=== PATIENT | male | born 1945 | race Caucasian/White ===

== ENCOUNTER 2018-12-01 15:29 | Inpatient (IN) | payer MEDICARE, MEDICAID ==
[2018-12-01 16:45] LABS: ABS Basophils 0 10^3/ul (0-0.2); ABS Eosinophils 0.2 10^3/ul (0-0.6); ABS Lymphocytes 1.2 10^3/ul (1.0-4.8); ABS Monocytes 0.8 10^3/ul (0-0.8); ABS Neutrophils 1.9 10^3/ul (1.5-7.7); ABS Nucleated RBC 0 10^3/ul; Eosinophil % 5.6 %; Hematocrit 40 % (42-52); Hemoglobin 13.3 g/dl (14.0-18.0); Lymphocyte % 29.3 %; Mean Corpuscular HGB Conc 33 g/dl (31-36); Mean Corpuscular Hemoglobin 30 pg (27-31); Mean Corpuscular Volume 91 fL (80-94); Mean Platelet Volume 7.1 fL (7.4-10.4); Nucleated Red Blood Cells % 0.1; Platelet Count 268 10^3/ul (150-450); Red Blood Count 4.41 10^6/ul (4.00-5.40); Red Cell Distribution Width 15 % (10.5-15); White Blood Count 4.2 10^3/ul (3.5-10.8)
[2018-12-01 17:05] LABS: Albumin 4.1 g/dL (3.2-5.2); Albumin/Globulin Ratio 1.2 (1-3); BUN/Creatinine Ratio 15.5 (8-20); Calcium 8.7 mg/dL (8.6-10.3); EGFR Non-African American 21.5 (>60); Globulin 3.4 g/dL (2-4); Potassium 4.4 mmol/L (3.5-5.0); Total Bilirubin 0.3 mg/dL (0.2-1.0); Total Protein 7.5 g/dL (6.4-8.9)
--- NOTE | 2018-12-01 18:38 | ED ---
Complex/Multi-Sys Presentation - HPI Summary HPI Summary: This patient is a 73 year old male presenting to [facility] accompanied by his caregiver Michelle with several complaints. The patient has a hx of mental retardation and does not speak, his ocular care technologist gave history. Pt was dx flu a week ago and MRSA of the RLE three days ago. Recently he has been less active, pale, and is not drinking fluids. She also states he c/o of pain in his ABD as he moves and is not eating well. There is no n/v but he does have constipation. LEVEL 5 CAVEAT: Exam limited due to severe MR. - History Of Current Complaint Chief Complaint: EDGeneral Time Seen by Provider: 12/01/18 18:27 Hx Obtained From: Family/Painter Mirror Onset/Duration: Still Present Timing: Constant Severity Currently: Moderate Associated Signs And Symptoms: Positive: Other - see HPI - Allergies/Home Medications Allergies/Adverse Reactions: Allergies Allergy/AdvReac Type Severity Reaction Status Date / Time Adhesive Tape Allergy Severe severe Verified 12/01/18 18:32 skin inflammation latex Allergy Severe See Comment Verified 12/01/18 19:35 cephalexin Allergy Unknown Unknown Verified 12/01/18 19:36 Reaction Details Home Medications: Home Medications Aspirin EC TAB* [Ecotrin EC Low Dose 81 MG*] 81 mg PO DAILY 12/01/18 [History Confirmed 12/01/18] Bismuth Subsalicylate [Pepto-Bismol Max Strength] 30 ml PO Q6HR PRN 12/01/18 [ History Confirmed 12/01/18] Lisinopril TAB* [Prinivil TAB*] 10 mg PO DAILY 12/01/18 [History Confirmed 12/01] Meclizine TAB* [Antivert 12.5 TAB*] 25 mg PO BID PRN 12/01/18 [History Confirmed 12/01/18] Oseltamivir CAP* [Tamiflu CAP*] 75 mg PO BID 12/01/18 [History Confirmed ] QUEtiapine TAB* [Seroquel 25 MG TAB*] 50 mg PO BID 12/01/18 [History Confirmed 12/01/18] Sulfamethox/Trimethoprim DS* [Bactrim DS 800/160 TAB*] 1 tab PO BID 12/01/18 [ History Confirmed 12/01/18] Verapamil HCl [Verapamil ER] 240 mg PO DAILY 12/01/18 [History Confirmed ] guaiFENesin LIQ* [Robitussin*] 5 mg PO Q4H PRN 12/01/18 [History Confirmed 12/01] PMH/Surg Hx/FS Hx/Imm Hx Previously Healthy: No - LEVEL 5 CAVEAT: Exam limited due to severe MR. Cardiovascular History: Reports: Hx Hypertension - ON MEDICATION, Hx Peripheral Vascular Disease GI History: Reports: Hx Gastroesophageal Reflux Disease - ON MEDICATION History: Reports: Hx Kidney Stones - HISTORY OF, Other Problems/Disorders - urethral strictures Musculoskeletal History: Reports: Hx Arthritis, Other Musculoskeletal History - VERY STIFF IN AM, Sensory History: Reports: Hx Cataracts - LEFT EYE, Hx Hearing Aid - LEFT EAR Denies: Hx Contacts or Glasses Opthamlomology History: Reports: Hx Cataracts - LEFT EYE Denies: Hx Contacts or Glasses Neurological History: Reports: Other Neuro Impairments/Disorders - SEVERE MENTAL RETARDATION Denies: Hx Dementia Psychiatric History: Reports: Hx Anxiety - ON MEDICTION, Hx Depression - Surgical History Surgery Procedure, Year, and Place: 01/2013-[facility] DILITATION[facility] Hx Anesthesia Reactions: No - Immunization History Immunizations Up to Date: Yes Infectious Disease History: Yes Infectious Disease History: Denies: Traveled Outside the [place] in Last 30 Days - Family History Known Family History: Positive: Unknown - Social History Alcohol Use: None Substance Use Type: Reports: None Smoking Status (MU): Never Smoked Tobacco Review of Systems - ROS Summary Review of Systems Summary: LEVEL 5 CAVEAT: Exam limited due to severe MR. Positive: Other - decreased activity . Negative: Fever Positive: Abdominal Pain, Other - contipation . Negative: Vomiting, Nausea Positive: Other - pallor All Other Systems Reviewed And Are Negative: No Physical Exam - Summary Physical Exam Summary: VITAL SIGNS: Reviewed. GENERAL: Patient is a well-developed and nourished male who is lying comfortable in the stretcher. Patient is not in any acute respiratory distress. HEAD AND FACE: No signs of trauma. No ecchymosis, hematomas or skull depressions. No sinus tenderness. EYES: PERRLA, EOMI x 2, No injected conjunctiva, no nystagmus. EARS: Hearing grossly intact. Ear canals and tympanic membranes are within normal limits. MOUTH: Oropharynx within normal limits. NECK: Supple, trachea is midline, no adenopathy, no JVD, no carotid bruit, no c- spine tenderness, neck with full ROM. CHEST: Symmetric, no tenderness at palpation LUNGS: Clear to auscultation bilaterally. No wheezing or crackles. CVS: Regular rate and rhythm, S1 and S2 present, no murmurs or gallops appreciated. ABDOMEN: Soft, non-tender. Slightly distention. No rebound no guarding, and no masses palpated. Bowel sounds are decreased EXTREMITIES: FROM in all major joints, no edema, no cyanosis or clubbing. NEURO: Alert. Non verbal SKIN: there is an ulcerations on the RLE right ankel small wound anterior aspect there is no discharge Triage Information Reviewed: Yes Vital Signs On Initial Exam: Initial Vitals Temp Pulse Resp BP Pulse Ox 98.8 F 69 18 105/57 98 12/01/18 15:31 12/01/18 15:31 12/01/18 15:31 12/01/18 15:31 12/01/18 15:31 Vital Signs Reviewed: Yes Diagnostics - Vital Signs Vital Signs Temp Pulse Resp BP Pulse Ox 12/01/18 18:26 69 96 12/01/18 18:24 70 107/62 97 12/01/18 17:50 99.2 F 72 17 108/54 98 12/01/18 15:31 98.8 F 69 18 105/57 98 - Laboratory Lab Results: Lab Results 12/01/18 12/01/18 Range/Units 15:40 15:40 WBC 4.2 (3.5-10.8) 10^3/ul RBC 4.41 (4.00-5.40) 10^6/ul Hgb 13.3 L (14.0-18.0) g/dl Hct 40 L (42-52) % MCV 91 (80-94) fL MCH 30 (27-31) pg MCHC 33 (31-36) g/dl RDW 15 (10.5-15) % Plt Count 268 (150-450) 10^3/ul MPV 7.1 L (7.4-10.4) fL Neut % (Auto) 45.7 % Lymph % (Auto) 29.3 % Hamilton % (Auto) 18.5 % Eos % (Auto) 5.6 % Baso % (Auto) 0.9 % Absolute Neuts (auto) 1.9 (1.5-7.7) 10^3/ul Absolute Lymphs (auto) 1.2 (1.0-4.8) 10^3/ul Absolute Monos (auto) 0.8 (0-0.8) 10^3/ul Absolute Eos (auto) 0.2 (0-0.6) 10^3/ul Absolute Basos (auto) 0 (0-0.2) 10^3/ul Absolute Nucleated RBC 0 10^3/ul Nucleated RBC % 0.1 Sodium 133 L (135-145) mmol/L Potassium 4.4 (3.5-5.0) mmol/L Chloride 102 (101-111) mmol/L Carbon Dioxide 24 (22-32) mmol/L Anion Gap 7 (2-11) mmol/L BUN 45 H (6-24) mg/dL Creatinine 2.90 H (0.67-1.17) mg/dL Est GFR ( Amer) 26.0 (>60) Est GFR (Non-Af Amer) 21.5 (>60) BUN/Creatinine Ratio 15.5 (8-20) Glucose 117 H (70-100) mg/dL Calcium 8.7 (8.6-10.3) mg/dL Total Bilirubin 0.30 (0.2-1.0) mg/dL AST 24 (13-39) U/L ALT 21 (7-52) U/L Alkaline Phosphatase 58 (34-104) U/L Total Protein 7.5 (6.4-8.9) g/dL Albumin 4.1 (3.2-5.2) g/dL Globulin 3.4 (2-4) g/dL Albumin/Globulin Ratio 1.2 (1-3) Result Diagrams: 12/01/18 15:40 12/02/18 06:50 Lab Statement: Any lab studies that have been ordered have been reviewed, and results considered in the medical decision making process. - CT CT ABD/pelvis CT Interpretation Completed By: Radiologist Summary of CT Findings: 1. Possible findings of acute cholecystitis which can be further evaluated with. ultrasound. 2. Subtle finding suggesting cystitis. 3. Bilateral inguinal hernias. No strangulation. 4. Bosniak type I renal cyst. No followup indicated. DR Hugo has reviewed this report. - EKG 193 Cardiac Rate: NL EKG Rhythm: Sinus Rhythm - at 62 bpm Summary of EKG Findings: no ST elevations Complex Multi-Symp Course/Dx Assessment/Plan: Blood work without any significant abnormality except for slight decrease in hemoglobin and hematocrit, sodium 133, BUNs 25, creatinine is 2.9 consistent with an acute renal failure. Glucose is 117. Abdominopelvic CT impression: possible findings of acute cholecystitis which can be further evaluated with ultrasound. Subtle findings suggestive cystitis. Bilateral inguinal hernias. No incarceration. Renal cyst. Patient doesnt have any significant pain in the right upper quadrant. At this point I discussed my physical exam and findings with Dr. Olsen from the hospitalist services who accepted the patient for admission. He will order an ultrasound of the right upper quadrant and if needed he will consult surgery. I is course the case with and Dr. Montoya from a surgery and he will consult he the ultrasound comes back positive for an acute cholecystitis. At this time Dr. Olsen with follow- up the ultrasound. - Diagnoses Provider Diagnoses: Dehydration, Acute on chronic renal failure - Physician Notifications Discussed Care Of Patient With: Derrick Olsen Time Discussed With Above Provider: 18:42 Instructed by Provider To: Admit As Inpatient Discharge - Sign-Out/Discharge Documenting (check all that apply): Patient Departure - admitted Patient Received Moderate/Deep Sedation with Procedure: No - Discharge Plan Condition: Fair Disposition: ADMITTED TO [facility] - Billing Disposition and Condition Condition: FAIR Disposition: Admitted to [facility] - Attestation Statements Document Initiated by Mario: Yes Documenting Scribe: David Kim Provider For Whom Mario is Documenting (Include Credential): Cas Hugo MD Scribe Attestation: IDavid , scribed for Cas Hugo MD on 12/02/18 at 205. Scribe Documentation Reviewed: Yes Provider Attestation: The documentation as recorded by the David tavares accurately reflects the service I personally performed and the decisions made by me, Cas Hugo MD Status of Scribe Document: Viewed Consult Consult: [id number]: I discussed the findings of the CT with Dr Castro and he has agreed to consult on the patient if the US is positive.
[2018-12-01] MEDS ORDERED: NS 0.9% 1000 ML** 1,000 ML IV ONE (18:39)
[2018-12-01] MEDS ORDERED: guaiFENesin LIQ* 100 MG/5 ML UDC PO PRN (19:14)
[2018-12-01] MEDS ORDERED: Acetaminophen TAB* 325 MG PO PRN (19:14)
[2018-12-01] MEDS ORDERED: Calcium Carbonate CHEW TAB* 500 MG (TUMS) PO PRN (19:14)
[2018-12-01] MEDS ORDERED: Bismuth Subsalicylate* 524 MG/30 ML BTL PO PRN (19:14)
[2018-12-01] MEDS ORDERED: Docusate CAP* 100 MG PO PRN (19:14)
[2018-12-01] MEDS ORDERED: Meclizine TAB* 12.5 MG PO PRN (19:14)
[2018-12-01] MEDS ORDERED: Piperacillin/Tazobac ADVAN(*) 3.375 GM in NS 0.9% 100 ML* 100 ML IVPB ONE (20:30)
[2018-12-01] MEDS ORDERED: Sulfamethox/Trimethoprim DS 800/160* TAB PO SCH (21:00)
[2018-12-01] MEDS ORDERED: Zosyn per Pharmacy* NOTE FOLLOW UP SCH (21:00)
[2018-12-01] MEDS: NS 0.9% 1000 ML** 1,000 ML IV SCH (21:35)
[2018-12-01] MEDS: QUEtiapine TAB* 25 MG PO SCH (22:17)
[2018-12-01] MEDS: Oseltamivir CAP* 30 MG CAP PO SCH (22:19)
[2018-12-01] MEDS: Donepezil TAB* 5 MG PO SCH (22:19)
[2018-12-01] MEDS: Heparin VIAL(*) 5000 UNITS/ML VIAL (FIVE THOUSAND) SUBCUT SCH (22:20)
--- NOTE | 2018-12-01 22:44 | HP ---
CC: Dr. Mark Mccain HISTORY AND PHYSICAL: DATE OF ADMISSION: 12/01/18 PRIMARY CARE PROVIDER: Mark Mccain MD CHIEF COMPLAINT: Dehydration. HISTORY OF PRESENT ILLNESS: This is a 73-year-old male who is developmentally delayed, who was diagnosed with flu and has started Tamiflu about 2 days ago, the patient resides in a group facility at the [facility], the house nurse was concerned that the patient is dehydrated, so the patient was brought in to the hospital. The house nurse has noted that the patient has had decreased oral intake, he is not eating or drinking as well as he normally does and he was also complaining of generalized malaise and fatigue. Subsequently, the patient was brought to the hospital. In the emergency room, the patient was found to have acute kidney injury, started on IV fluids, and subsequently the hospitalists service was called. PAST MEDICAL HISTORY: 1. Mental retardation. 2. Dementia. 3. Urethral stricture. 4. Right lower extremity infection. 5. Depression. 6. GERD. 7. Left-sided hearing loss. PAST SURGICAL HISTORY: Includes: 1. TURP. 2. Internal urethrotomy. Allergies: Cephalexin, latex, adhesive tape MEDICATIONS: Include: 1. Tylenol 650 mg every 4 hours as needed. 2. Aspirin 81 mg daily. 3. TUMS 500 mg every 8 hours as needed. 4. Celexa 20 mg daily. 5. Colace 100 mg twice daily as needed. 6. Aricept 5 mg at night. 7. Robitussin 5 mL as needed. 8. Meclizine 25 mg b.i.d. 9. Tamiflu. 10. Seroquel 250 mg b.i.d. 11. Verapamil 240 mg daily. 12. Hydrochlorothiazide 25 mg in the morning. 13. Lisinopril 10 mg daily. 14. Bactrim 1 tablet twice a day of DS 800/160 that the patient has been taking for the past week. SOCIAL HISTORY: He lives at [facility]. Does not drink alcohol, no smoking. FAMILY HISTORY: Cannot be obtained as the patient cannot give full detailed history secondary to his mental retardation. REVIEW OF SYSTEMS: Limited secondary to the patient not able to give full history. PHYSICAL EXAMINATION GENERAL: This is a well-developed, well-nourished male, lying in an ER stretcher, in no acute distress. VITAL SIGNS: Blood pressure of 108/54, heart rate of 72, temperature of 99.2 Fahrenheit, pulse of 72, respiratory rate of 17, saturation of 98% on room air. HEENT: Pupils equal, round, reactive to light. Atraumatic, normocephalic. Oral mucosa is dry. NECK: There is no oropharyngeal erythema, no tonsillar exudates. There is no cervical lymphadenopathy. LUNGS: There is no tachypnea. No use of accessory muscles. HEART: No chest wall tenderness. Regular rate and rhythm. No murmurs, rubs, or gallops. ABDOMEN: Bowel sounds are normoactive in all 4 quadrants. Abdomen is soft, nontender, nondistended. NEUROLOGIC: He follows all my commands. He is alert and oriented x1, person. There is no focal neurological deficits. Skin: at the Right foot an area a skin breakdown, with ointment noted and dressing intact, no erythema, mild serous discharge. DIAGNOSTIC STUDIES/LAB DATA: Hemoglobin of 13.3, hematocrit of 40, platelets of 268, white count of 4.2. Sodium of 133, potassium of 4.4, chloride of 102, BUN of 45, creatinine of 2.90, glucose of 117, bicarb of 24, alkaline phosphatase of 58. EKG shows normal sinus rhythm. IMPRESSION AND PLAN: 1. Acute kidney injury: This likely is secondary to dehydration. However, the patient is also on Bactrim that can cause artificial elevation of the BUN and creatinine as well, however, the patient does appear to be dehydrated. We will start the patient on IV fluids, hold HCTZ as well as lisinopril that the patient takes at home. CT abdomen ordered by ED, will follow up. 2. Recent diagnosis of flu: Continue Tamiflu. 3. Right lower extremity wound infection that has been treated by the wound clinic. Continue Bactrim for now. 4. History of depression: Continue home medications. 5. History of dementia/mental retardation: Supportive care. 6. DVT prophylaxis in the form of heparin 5000 units subcu. 7. Regular diet. 8. Activity as tolerated. [id number]/[facility] #: [id number] [facility]
--- NOTE | 2018-12-01 23:03 | PN ---
Hospitalist Progress Note Date of Service: 12/01/18 patient admitted earlier today, CT shows possible acute cholecystits, will get ultrasound of the abdomen, make NPO, start zosyn.
[2018-12-02] MEDS: ZOSYN 3.375 GM Q8H per EXTENDED INFUSION IVPB SCH ×6 (01:32→16:39)
--- NOTE | 2018-12-02 06:45 | PN ---
Hospitalist Progress Note Date of Service: 12/02/18 Ultrasound of the gallbladder shows: equivocal for acute cholecystitis. Consider possible Surgery consultation.
[2018-12-02 07:24] LABS: BUN/Creatinine Ratio 16.5 (8-20); Calcium 8.1 mg/dL (8.6-10.3); EGFR African American 32.1 (>60); EGFR Non-African American 26.5 (>60); Potassium 4.3 mmol/L (3.5-5.0)
[2018-12-02 08:51] LABS: C Reactive Protein 18.91 mg/L (<8.01)
[2018-12-02] MEDS: QUEtiapine TAB* 25 MG PO SCH ×2 (10:11→19:57)
[2018-12-02] MEDS: Heparin VIAL(*) 5000 UNITS/ML VIAL (FIVE THOUSAND) SUBCUT SCH ×2 (10:11→19:59)
[2018-12-02] MEDS: Verapamil SR TAB* 240 MG PO SCH (10:11)
[2018-12-02] MEDS: Aspirin EC TAB* 81 MG TAB.EC PO SCH (10:11)
[2018-12-02] MEDS: Citalopram TAB* 20 MG PO SCH (10:11)
[2018-12-02] MEDS: Pantoprazole TAB * 40 MG TAB PO SCH (10:12)
[2018-12-02] MEDS: Oseltamivir CAP* 30 MG CAP PO SCH ×2 (10:12→19:58)
[2018-12-02] MEDS: NS 0.9% 1000 ML** 1,000 ML IV SCH ×2 (10:12→22:44)
[2018-12-02] MEDS: DOXYcycline IV* 100 MG in NS 0.9% 250 ML* 250 ML IVPB SCH ×2 (10:12→19:57)
--- NOTE | 2018-12-02 15:57 | PN ---
Subjective Date of Service: 12/02/18 Interval History: Patient is in good spirits, patient denies SOB, wheezing, CP, F/C, N/V, abdominal pain, diarrhea, F/C, or other pain. Patient is limited in responses due to MR. Patient repeatedly rubs his RUQ while talking, but denies RUQ pain. Family History: Unchanged from Admission Social History: Unchanged from Admission Past Medical History: Unchanged from Admission Objective Active Medications: Acetaminophen (Tylenol Tab*) 650 mg PO Q4H PRN PRN Reason: PAIN/FEVER Aspirin (Aspirin Ec Tab*) 81 mg PO DAILY [facility] Last Admin: 12/02/18 10:11 Dose: 81 mg Calcium Carbonate (Tums*) 500 mg PO Q8HR PRN PRN Reason: INDIGESTION Citalopram Hydrobromide (Celexa Tab*) 20 mg PO DAILY [facility] Last Admin: 12/02/18 10:11 Dose: 20 mg Docusate Sodium (Colace Cap*) 100 mg PO BID PRN PRN Reason: CONSTIPATION Donepezil HCl (Aricept Tab*) 5 mg PO 1999 [facility] Last Admin: 12/01/18 22:19 Dose: 5 mg Guaifenesin (Robitussin*) 5 ml PO Q4H PRN PRN Reason: COUGH Heparin Sodium (Porcine) (Heparin Vial(*)) 5,000 units SUBCUT Q12HR [facility] Last Admin: 12/02/18 10:11 Dose: 5,000 units Sodium Chloride (Ns 0.9% 1000 Ml) 1,000 mls @ 100 mls/hr IV PER RATE [facility] Last Admin: 12/02/18 10:12 Dose: 100 mls/hr Piperacillin Sod/Tazobactam (Sod 3.375 gm/ Sodium Chloride) 100 mls @ 25 mls/ hr IVPB Q8H [facility] Last Admin: 12/02/18 11:28 Dose: 25 mls/hr Doxycycline Hyclate 100 mg/ (Sodium Chloride) 250 mls @ 250 mls/hr IVPB Q12H [facility] Last Admin: 12/02/18 10:12 Dose: 250 mls/hr Meclizine HCl (Antivert Tab*) 25 mg PO BID PRN PRN Reason: DIZZINESS Oseltamivir Phosphate (Tamiflu Cap*) 30 mg PO BID [facility] Stop: 12/08/18 21:01 Last Admin: 12/02/18 10:12 Dose: 30 mg Pantoprazole Sodium (Protonix Tab*) 40 mg PO QAM [facility] Last Admin: 12/02/18 10:12 Dose: 40 mg Pharmacy Consult (Zosyn Per Pharmacy*) 1 note FOLLOW UP .ZOSYN PER PHARMACY [facility] Quetiapine Fumarate (Seroquel Tab*) 50 mg PO BID [facility] Last Admin: 12/02/18 10:11 Dose: 50 mg Verapamil HCl (Calan Sr Tab*) 240 mg PO DAILY [facility] Last Admin: 12/02/18 10:11 Dose: 240 mg Vital Signs - 8 hr 12/02/18 12/02/18 08:00 11:11 Temperature 98.1 F Pulse Rate 73 Respiratory 16 16 Rate Blood Pressure 129/63 (mmHg) O2 Sat by Pulse 96 Oximetry Oxygen Devices in Use Now: None Appearance: Patient is a 73yo male who appears stated age and is sitting in the bed in [facility]. Eyes: No Scleral Icterus, PERRLA, - - Right sided esotropia. Ears/Nose/Mouth/Throat: NL Teeth, Lips, Gums, Clear Oropharnyx, Mucous Membranes Moist Neck: NL Appearance and Movements; NL JVP, Trachea Midline Respiratory: Symmetrical Chest Expansion and Respiratory Effort, Clear to Auscultation Cardiovascular: NL Sounds; No Murmurs; No JVD, RRR, No Edema Abdominal: NL Sounds; No Tenderness; No Distention, No Hepatosplenomegaly, - - Negative Hines's Sign Lymphatic: No Cervical Adenopathy Extremities: No Edema, No Clubbing, Cyanosis Skin: No Rash or Ulcers, No Nodules or Sclerosis Neurological: NL Sensation, NL Muscle Strength and Tone, - - CN II-XII intact. Alert and oriented only to self. Result Diagrams: 12/01/18 15:40 12/02/18 06:50 Additional Lab and Data: Lab Results Microbiology and Other Data: Microbiology 12/01/18 21:38 Nasal Screen MRSA (PCR) - Final Nasal Mrsa Not Detected Assess/Plan/Problems-Billing Assessment: Patient is a 73yo male with a PMH for MR, Dementia, chronic LE wound, and recent flu diagnosis who is admitted with MERARI and dehydration with concern for cholecystitis based on imaging who is stable and doing well. - Patient Problems (1) Acute kidney injury Current Visit: No Status: Acute Priority: High Onset Date: 06/22/14 Code (s): N17.9 - ACUTE KIDNEY FAILURE, UNSPECIFIED SNOMED Code(s): 728499509604056 Comment: - Likely combination of prerenal etiology and factitious Cret elevation with bactrim - Improving with Fluids and D/C bactrim - Continue to monitor - Urinalysis pending. (2) Cholecystitis Current Visit: Yes Status: Acute Code(s): K81.9 - CHOLECYSTITIS, UNSPECIFIED SNOMED Code(s): 42334595 Comment: - Equivocal, based on imaging - HIDA scan pending. - Asymptomatic but poor historian (3) Flu Current Visit: Yes Status: Acute Code(s): J11.1 - FLU DUE TO UNIDENTIFIED INFLUENZA VIRUS W OTH RESP MANIFEST SNOMED Code(s): 4407490 Comment: - Asymptomatic, Continue Tamiflu (4) Wound of lower extremity Current Visit: Yes Status: Acute Code(s): S81.809A - UNSPECIFIED OPEN WOUND , UNSPECIFIED LOWER LEG, INIT ENCNTR SNOMED Code(s): 874937104 Comment: - Managed by wound Clinic - Infected by MRSA - Change to Doxycycline to avoid Bactrim (5) DVT prophylaxis Current Visit: Yes Status: Acute Code(s): MKA1482 - SNOMED Code(s): 041998369 Comment: - Heparin SubQ (6) Full code status Current Visit: Yes Status: Acute Code(s): Z78.9 - OTHER SPECIFIED HEALTH STATUS SNOMED Code(s): 428785915 Status and Disposition: Inpatient for MERARI and evaulation of Cholecystitis
[2018-12-02 19:06] LABS: Urine Appearance Clear; Urine Bacteria Absent (Absent); Urine Bilirubin Negative (Negative); Urine Blood 1+ (Negative); Urine Color Straw; Urine Glucose Negative (Negative); Urine Ketones Negative (Negative); Urine Nitrite Negative (Negative); Urine Protein Negative (Negative); Urine Red Blood Cell 3+(>10/hpf) (Absent); Urine Specific Gravity 1.013 (1.010-1.030); Urine Squamous Epithelial Cell Present (Absent); Urine Urobilinogen Negative (Negative); Urine White Blood Cell Trace(0-5/hpf) (Absent)
[2018-12-02] MEDS: Donepezil TAB* 5 MG PO SCH (19:58)
[2018-12-03] MEDS: ZOSYN 3.375 GM Q8H per EXTENDED INFUSION IVPB SCH ×6 (01:45→17:14)
[2018-12-03 06:14] LABS: ABS Basophils 0 10^3/ul (0-0.2); ABS Eosinophils 0.3 10^3/ul (0-0.6); ABS Lymphocytes 1.1 10^3/ul (1.0-4.8); ABS Monocytes 0.6 10^3/ul (0-0.8); ABS Neutrophils 1.2 10^3/ul (1.5-7.7); ABS Nucleated RBC 0 10^3/ul; Eosinophil % 8.4 %; Hematocrit 36 % (42-52); Lymphocyte % 34.5 %; Mean Corpuscular HGB Conc 33 g/dl (31-36); Mean Corpuscular Hemoglobin 30 pg (27-31); Mean Corpuscular Volume 91 fL (80-94); Mean Platelet Volume 7.4 fL (7.4-10.4); Nucleated Red Blood Cells % 0.1; Platelet Count 195 10^3/ul (150-450); Red Blood Count 3.98 10^6/ul (4.00-5.40); Red Cell Distribution Width 14 % (10.5-15); White Blood Count 3.2 10^3/ul (3.5-10.8)
[2018-12-03 06:44] LABS: Albumin 3.4 g/dL (3.2-5.2); Albumin/Globulin Ratio 1.2 (1-3); BUN/Creatinine Ratio 14.7 (8-20); EGFR Non-African American 36.3 (>60); Globulin 2.9 g/dL (2-4); Magnesium 2.2 mg/dL (1.9-2.7); Potassium 4.6 mmol/L (3.5-5.0); Total Bilirubin 0.5 mg/dL (0.2-1.0); Total Protein 6.3 g/dL (6.4-8.9)
[2018-12-03] MEDS: DOXYcycline IV* 100 MG in NS 0.9% 250 ML* 250 ML IVPB SCH ×2 (07:40→21:33)
[2018-12-03] MEDS: NS 0.9% 1000 ML** 1,000 ML IV SCH (07:40)
[2018-12-03] MEDS: Citalopram TAB* 20 MG PO SCH (09:09)
[2018-12-03] MEDS: Verapamil SR TAB* 240 MG PO SCH (09:09)
[2018-12-03] MEDS: Heparin VIAL(*) 5000 UNITS/ML VIAL (FIVE THOUSAND) SUBCUT SCH ×2 (09:09→21:33)
[2018-12-03] MEDS: QUEtiapine TAB* 25 MG PO SCH ×2 (09:09→21:31)
[2018-12-03] MEDS: Pantoprazole TAB * 40 MG TAB PO SCH (09:09)
[2018-12-03] MEDS: Aspirin EC TAB* 81 MG TAB.EC PO SCH (09:09)
[2018-12-03] MEDS: Oseltamivir CAP* 30 MG CAP PO SCH ×2 (09:09→21:31)
--- NOTE | 2018-12-03 11:52 | PN ---
Subjective Date of Service: 12/03/18 Interval History: Patient is feeling again well today. Gives this author high fives with every question, denies pain, SOB, abdominal pain, nausea. Family History: Unchanged from Admission Social History: Unchanged from Admission Past Medical History: Unchanged from Admission Objective Active Medications: Acetaminophen (Tylenol Tab*) 650 mg PO Q4H PRN PRN Reason: PAIN/FEVER Aspirin (Aspirin Ec Tab*) 81 mg PO DAILY [facility] Last Admin: 12/03/18 09:09 Dose: 81 mg Calcium Carbonate (Tums*) 500 mg PO Q8HR PRN PRN Reason: INDIGESTION Citalopram Hydrobromide (Celexa Tab*) 20 mg PO DAILY [facility] Last Admin: 12/03/18 09:09 Dose: 20 mg Docusate Sodium (Colace Cap*) 100 mg PO BID PRN PRN Reason: CONSTIPATION Donepezil HCl (Aricept Tab*) 5 mg PO 2000 [facility] Last Admin: 12/02/18 19:58 Dose: 5 mg Guaifenesin (Robitussin*) 5 ml PO Q4H PRN PRN Reason: COUGH Heparin Sodium (Porcine) (Heparin Vial(*)) 5,000 units SUBCUT Q12HR [facility] Last Admin: 12/03/18 09:09 Dose: 5,000 units Sodium Chloride (Ns 0.9% 1000 Ml) 1,000 mls @ 100 mls/hr IV PER RATE [facility] Last Admin: 12/03/18 07:40 Dose: 100 mls/hr Piperacillin Sod/Tazobactam (Sod 3.375 gm/ Sodium Chloride) 100 mls @ 25 mls/ hr IVPB Q8H [facility] Last Admin: 12/03/18 10:03 Dose: 25 mls/hr Doxycycline Hyclate 100 mg/ (Sodium Chloride) 250 mls @ 250 mls/hr IVPB Q12H [facility] Last Admin: 12/03/18 07:40 Dose: 250 mls/hr Meclizine HCl (Antivert Tab*) 25 mg PO BID PRN PRN Reason: DIZZINESS Oseltamivir Phosphate (Tamiflu Cap*) 30 mg PO BID [facility] Stop: 12/08/18 21:01 Last Admin: 12/03/18 09:09 Dose: 30 mg Pantoprazole Sodium (Protonix Tab*) 40 mg PO QAM [facility] Last Admin: 12/03/18 09:09 Dose: 40 mg Pharmacy Consult (Zosyn Per Pharmacy*) 1 note FOLLOW UP .ZOSYN PER PHARMACY [facility] Quetiapine Fumarate (Seroquel Tab*) 50 mg PO BID [facility] Last Admin: 12/03/18 09:09 Dose: 50 mg Verapamil HCl (Calan Sr Tab*) 240 mg PO DAILY [facility] Last Admin: 12/03/18 09:09 Dose: 240 mg Vital Signs - 8 hr 12/03/18 12/03/18 07:28 07:31 Temperature 97.2 F Pulse Rate 74 Respiratory 18 17 Rate Blood Pressure 143/73 (mmHg) O2 Sat by Pulse 98 Oximetry Oxygen Devices in Use Now: None Appearance: Patient is a 73yo male who appears stated age and is sitting in the bed in NAD. Eyes: No Scleral Icterus, PERRLA, - - Right sided exotropia Ears/Nose/Mouth/Throat: NL Teeth, Lips, Gums, Clear Oropharnyx, Mucous Membranes Moist Neck: NL Appearance and Movements; NL JVP, Trachea Midline Respiratory: Symmetrical Chest Expansion and Respiratory Effort, Clear to Auscultation Cardiovascular: NL Sounds; No Murmurs; No JVD, RRR, No Edema Abdominal: NL Sounds; No Tenderness; No Distention, No Hepatosplenomegaly Lymphatic: No Cervical Adenopathy Extremities: No Edema, No Clubbing, Cyanosis Skin: No Nodules or Sclerosis, - - Chronic Venous stasis changes in LEs. Wounds covered with Band-aids on feet. Neurological: NL Sensation, NL Muscle Strength and Tone, - Result Diagrams: 12/03/18 05:37 12/03/18 05:37 Additional Lab and Data: Lab Results Microbiology and Other Data: Microbiology 12/01/18 21:38 Nasal Screen MRSA (PCR) - Final Nasal Mrsa Not Detected Assess/Plan/Problems-Billing Assessment: Patient is a 73yo male with a PMH for MR, Dementia, chronic LE wound, and recent flu diagnosis who is admitted with MERARI and dehydration with concern for cholecystitis based on imaging who is stable and doing well. - Patient Problems (1) Acute kidney injury Current Visit: No Status: Acute Priority: High Onset Date: 06/22/14 Code (s): N17.9 - ACUTE KIDNEY FAILURE, UNSPECIFIED SNOMED Code(s): 091506444523452 Comment: - Likely combination of prerenal etiology and factitious Cret elevation with bactrim - Continuing to improve with Fluids and D/C bactrim - Continue to monitor - Urinalysis unremarkable (2) Cholecystitis Current Visit: Yes Status: Acute Code(s): K81.9 - CHOLECYSTITIS, UNSPECIFIED SNOMED Code(s): 61204732 Comment: - Equivocal, based on imaging - HIDA scan positive. - Asymptomatic but poor historian - Continue Zosyn - Appreciate surgery consult, likely still artifactual, no urgent intervention or follow up imaging recommended. (3) Flu Current Visit: Yes Status: Acute Code(s): J11.1 - FLU DUE TO UNIDENTIFIED INFLUENZA VIRUS W OTH RESP MANIFEST SNOMED Code(s): 6528299 Comment: - Asymptomatic, Continue Tamiflu (4) Wound of lower extremity Current Visit: Yes Status: Acute Code(s): S81.809A - UNSPECIFIED OPEN WOUND , UNSPECIFIED LOWER LEG, INIT ENCNTR SNOMED Code(s): 786286580 Comment: - Managed by wound Clinic - Infected by MRSA - Change to Doxycycline to avoid Bactrim (5) DVT prophylaxis Current Visit: Yes Status: Acute Code(s): BJJ2323 - SNOMED Code(s): 511555339 Comment: - Heparin SubQ (6) Full code status Current Visit: Yes Status: Acute Code(s): Z78.9 - OTHER SPECIFIED HEALTH STATUS SNOMED Code(s): 372504701 Status and Disposition: Inpatient for MERARI and evaulation of Cholecystitis
--- NOTE | 2018-12-03 12:11 | CONS ---
CC: Mark Mccain MD * SURGICAL CONSULTATION REPORT: DATE OF CONSULT: 12/03/18 REQUESTING PROVIDER: DYLON العلي REASON FOR CONSULT: Positive HIDA scan. HISTORY OF PRESENT ILLNESS: Mr. Neely is a 73-year-old male who lives at [facility]. He has developmental disability and was admitted to [facility] on 12/01/18 with acute kidney injury secondary to dehydration following a recent diagnosis of influenza, for which he was on Tamiflu and also diagnosis of right lower extremity wound infection, for which he has been treated with Bactrim. The patient's prehospital course was notable for this as well as decreased oral intake. At emergency room presentation, the ER provider noted no history of nausea or vomiting, but constipation and health care technician reported the patient complained of abdominal pain and therefore CT scan of the abdomen and pelvis was done without contrast due to his acute renal injury. The CT scan was notable for distended gallbladder with mild wall thickening. No visualized gallstones or pericholecystic fluid. No intra or extrahepatic ductal dilatation and normal-appearing stomach, small bowel, colon, and appendix. Due to the impression of possible acute cholecystitis, he also underwent ultrasound which demonstrated multiple gallstones, thickened wall measuring 0.4 cm. No pericholecystic fluid or sonographic Hines sign and normal CBD and hepatic steatosis. Because these findings were felt to be equivocal, a HIDA scan was subsequently ordered which was notable for no reflux of radiotracer into the gallbladder suggesting cystic duct obstruction. The patient is communicative but difficult to understand. He does not report abdominal pain and does indicate hunger. PAST MEDICAL HISTORY: 1. Mental retardation. 2. Dementia. 3. Urethral stricture. 4. Right lower extremity infection. 5. Depression. 6. Gastroesophageal reflux disease. 7. Left-sided hearing loss. PAST SURGICAL HISTORY: 1. TURP. 2. Internal urethrotomy. MEDICATIONS: Home medications: 1. Lisinopril. 2. Aspirin. 3. Hydrochlorothiazide. 4. Verapamil. 5. Citalopram. 6. Omeprazole. 7. Donepezil. 8. Quetiapine. 9. Bactrim. 10. Tamiflu. Hospital medications include home medications plus Zosyn. ALLERGIES: ADHESIVE TAPE, LATEX, CEPHALEXIN. SOCIAL HISTORY: Resident of the [facility]. No alcohol or tobacco use reported. PHYSICAL EXAM: Temperature 97.2, blood pressure 143/70, pulse 74, respirations 17, O2 sat 98% on room air. General: A 73-year-old gentleman who appears in no acute distress, sitting up in bed. Awake and alert, interactive. Sclerae are anicteric. Mucous membranes are moist. Abdomen: Overweight, no scars. Nondistended with no tympany. Bowel sounds are present. Soft, nontender. No palpable masses. No hepato or splenomegaly. No Hines sign. DIAGNOSTIC STUDIES/LAB DATA: Radiographic data reviewed and as above. Laboratory data: WBCs 3.2, hemoglobin 12, platelet 195. Chemistries: Normal electrolytes. Creatinine 1.84, decreased from 2.42. BUN 27, decreased from 40. Total bili, ALT, AST, alk phos normal. CRP 18.9. IMPRESSION: A 73-year-old male with developmental delays, dementia, who was admitted for acute kidney injury secondary to dehydration, likely secondary to recently diagnosed influenza. The findings on his HIDA scan are likely false positive and relate to a prolonged n.p.o. status. There is no role for any surgical intervention. PLAN/RECOMMENDATIONS: Continue to manage him medically. Diet as tolerated. No need for additional surgical followup unless new issues arise. [id number]/[facility] #: [id number] SHERLYN
[2018-12-03] MEDS: Donepezil TAB* 5 MG PO SCH (21:31)
[2018-12-04] MEDS: NS 0.9% 1000 ML** 1,000 ML IV SCH (00:43)
[2018-12-04] MEDS: ZOSYN 3.375 GM Q8H per EXTENDED INFUSION IVPB SCH ×2 (01:42)
[2018-12-04 07:11] LABS: ABS Basophils 0 10^3/ul (0-0.2); ABS Eosinophils 0.2 10^3/ul (0-0.6); ABS Lymphocytes 1.2 10^3/ul (1.0-4.8); ABS Monocytes 0.5 10^3/ul (0-0.8); ABS Neutrophils 1.2 10^3/ul (1.5-7.7); ABS Nucleated RBC 0 10^3/ul; Eosinophil % 6.6 %; Hematocrit 37 % (42-52); Hemoglobin 11.9 g/dl (14.0-18.0); Lymphocyte % 37.7 %; Mean Corpuscular HGB Conc 33 g/dl (31-36); Mean Corpuscular Hemoglobin 30 pg (27-31); Mean Corpuscular Volume 93 fL (80-94); Mean Platelet Volume 7.4 fL (7.4-10.4); Nucleated Red Blood Cells % 0.1; Platelet Count 197 10^3/ul (150-450); Red Blood Count 3.97 10^6/ul (4.00-5.40); Red Cell Distribution Width 14 % (10.5-15); White Blood Count 3.2 10^3/ul (3.5-10.8)
[2018-12-04 07:29] LABS: Albumin 3.3 g/dL (3.2-5.2); Albumin/Globulin Ratio 1.1 (1-3); BUN/Creatinine Ratio 13.4 (8-20); Calcium 8.5 mg/dL (8.6-10.3); EGFR African American 52.8 (>60); EGFR Non-African American 43.6 (>60); Magnesium 1.9 mg/dL (1.9-2.7); Potassium 4.4 mmol/L (3.5-5.0); Total Bilirubin 0.4 mg/dL (0.2-1.0); Total Protein 6.3 g/dL (6.4-8.9)
[2018-12-04] MEDS: Pantoprazole TAB * 40 MG TAB PO SCH (08:52)
[2018-12-04] MEDS: Citalopram TAB* 20 MG PO SCH (08:52)
[2018-12-04] MEDS: QUEtiapine TAB* 25 MG PO SCH (08:52)
[2018-12-04] MEDS: Oseltamivir CAP* 30 MG CAP PO SCH (08:52)
[2018-12-04] MEDS: Aspirin EC TAB* 81 MG TAB.EC PO SCH (08:52)
[2018-12-04] MEDS: Heparin VIAL(*) 5000 UNITS/ML VIAL (FIVE THOUSAND) SUBCUT SCH (08:52)
[2018-12-04] MEDS: Verapamil SR TAB* 240 MG PO SCH (08:52)
[2018-12-04] MEDS ORDERED: Amoxicillin/Clavulanate TAB* 875 MG PO SCH (09:00)
[2018-12-04] MEDS ORDERED: DOXYcycline CAP(*) 100 MG PO SCH (09:00)
[2018-12-04] MEDS ORDERED: Lactobacillus Acidophilus* 1 TAB PO SCH (11:00)
--- NOTE | 2018-12-04 11:23 | DS ---
CC: Dr. Mark Mccain * DISCHARGE SUMMARY: DATE OF ADMISSION: 12/01/18 DATE OF DISCHARGE: 12/04/18 PRIMARY CARE PROVIDER: Dr. Mark Mccain. MY ATTENDING WHILE IN THE HOSPITAL: Dr. Gus Montemayor.* (DICTATED BY DYLON SUTTON) PRIMARY DISCHARGE DIAGNOSES: 1. Acute kidney injury due to dehydration. 2. Influenza. 3. Cellulitis of the right lower extremity. 4. Possible cholecystitis. SECONDARY DISCHARGE DIAGNOSES: 1. Vascular dementia. 2. Severe developmental delay. 3. Depression. 4. Gastroesophageal reflux disease. 5. Urethral stricture, status post transurethral resection of the prostate and urethrotomy. STUDIES DONE WHILE IN THE HOSPITAL: Abdomen and pelvis CT from 12/01/18 read as possible findings of acute cholecystitis; which can be further evaluated by ultrasound as well as findings suggesting cystitis, bilateral inguinal hernias; no strangulation, Bosniak type 1 renal cyst; no followup indicated. I have an ultrasound from 12/01/18 read as critical findings for acute cholecystitis, hepatic steatosis, renal parenchymal disease. Abdomen HIDA scan from 12/03/18 read as findings consistent with cystic duct obstruction. Electrocardiogram shows normal sinus rhythm, left axis deviation. No hypertrophy or enlargement. No ST-segment abnormalities. Rate of 62, QTc of 427. No significant abnormalities. MEDICATIONS AT DISCHARGE: 1. Docusate 100 mg p.o. b.i.d. as needed. 2. Celexa 20 mg p.o. daily. 3. Omeprazole 20 mg p.o. daily. 4. Calcium carbonate 500 mg p.o. q.8 hours as needed. 5. Donepezil 5 mg p.o. nightly. 6. Tylenol 650 mg p.o. q.4 hours as needed. 7. Guaifenesin 5 mg p.o. q.4 hours as needed. 8. Meclizine 25 mg p.o. b.i.d. as needed. 9. Seroquel 50 mg p.o. b.i.d. 10. Verapamil 240 mg p.o. daily. 11. Aspirin 81 mg p.o. daily. 12. Lisinopril 5 mg p.o. daily. 13. Augmentin 875 mg p.o. b.i.d. x8 tablets. Medications discontinued at discharge: 1. Pepto-Bismol. 2. Tamiflu. 3. Bactrim. 4. Lisinopril 10 mg p.o. daily. 5. Hydrochlorothiazide. New medications at discharge: 1. Augmentin 875 mg p.o. b.i.d. 2. Lisinopril 5 mg p.o. daily. HOSPITAL COURSE: This is a brief summary of patient's presentation. For more details, please see history and physical from Dr. Megan Villa on 12/01/18. In brief, patient is a 74-year-old male with past medical history significant for the above who presented to the emergency department for several days of poor oral intake and dehydration in the setting of being diagnosed with the flu and a lower extremity cellulitis, being on Bactrim and Tamiflu for this. Patient in the emergency department was found to have a significant acute kidney injury with a creatinine of 2.9, up from his baseline around 1.5. Patient was started on IV fluids, admitted to the hospital. Patient had incidentally found possibility of cholecystitis while in the hospital. Patient was made n.p.o. and started on Zosyn. Patient had a HIDA scan read as above. Patient was seen in consultation by Dr. Tigre Flores of surgery who believes that this was due to patient's poor oral intake and did not represent true cholecystitis due to the lack of patient's symptomatology or other signs of systemic infection. Patient was continued on Tamiflu while in the hospital. Patient was transitioned from Bactrim to doxycycline for treatment of his MRSA infection in his foot as Bactrim can, in fact, elevate the creatinine in relation to GFR. Patient's creatinine improved greatly with fluids and patient had returned almost to his baseline on 12/04/18. Patient had a good oral intake on 12/03/18 and 12/04/18. Patient was in good mood and had no complaints on 08/12 and stable and amenable for discharge back to [facility]. Patient had several episodes of diarrhea without abdominal pain or systemic symptoms and was started on a probiotic on day of discharge. PHYSICAL EXAM ON THE DAY OF DISCHARGE: General: Patient is a 74-year-old male who appears stated age, sitting comfortably on the bed, in no acute distress. Vital Signs: Temperature 97.2, pulse rate of 65, respiratory rate 14, oxygen saturation 95% on room air, blood pressure 127/63. HEENT: Head: Normocephalic , atraumatic. Sclerae anicteric. No conjunctival injection. Nasal mucosa is moist. Oral mucosa moist. No pharyngeal erythema, discharge, or exudate. Neck : Supple, nontender. No lymphadenopathy. No carotid bruits auscultated. No JVD. Cardiac: Regular rate and rhythm. No clicks, murmurs, gallops, or rubs. Pulses 2+ in the bilateral dorsalis pedis, posterior tibialis and radial areas. Respiratory: Clear to auscultation bilaterally. No wheezes, rales, or rhonchi. Good air exchange bilaterally. Abdomen: Soft, nontender, nondistended. Bowel sounds present, normoactive in all 4 quadrants. No hepatospleno-megaly. No abdominal bruits auscultated. Negative Hines sign. Genitourinary: No suprapubic or CVA tenderness. Skin: Clean, dry, and intact. No rash. Neuro: Cranial nerves II through XII intact, except for exotropia of the right eye consistent with previous exams. No focal deficits. Patient is essentially nonverbal and other neurologic testing was unable to be performed. Psychiatric: Very pleasant and cooperative. LABORATORY DATA ON DAY OF DISCHARGE: White blood cell count 3.2, hemoglobin 11.9, platelet count 197. Sodium 138, potassium 4.4, carbon dioxide 22, anion gap 5, BUN 21, creatinine 1.57, glucose 89, calcium 8.5, magnesium 1.9. AST 14 , ALT of 11, albumin 3.3, globulin 3.0. DISCHARGE PLAN: Patient will be discharged back to [facility]. Patient was started on Zosyn while in the hospital for empiric treatment of possible cholecystitis, though the likelihood of this being cholecystitis is low. He will finish a 7-day course of Augmentin, which will entail 8 more doses. Patient has had 10 days of antibiotics for his cellulitis and has almost no signs of residual inflammation on patient's right foot. We will discontinue patient's doxycycline at this time. Patient is to follow up with the Wound Clinic as needed. Patient should have repeat BMP within 1 week to assess for continued improvement in his renal function. Patient has known gallstones found during this hospitalization. Patient should be referred to the hospital for an outpatient elective cholecystectomy if he has any symptoms consistent with cholecystitis. Patient should engage in activities as tolerated and have a heart healthy diet without caffeine. Patient has been normotensive while in the hospital on only his verapamil. Patient's lisinopril will be resumed at a lower dose for renal protection and patient's hydrochlorothiazide will be held at this time. This may be resumed and lisinopril may be increased again if patient is found to be hypertensive. Patient should be started on anti- diarrheal agents as needed for persistent diarrhea putting him at risk for dehydration. TIME SPENT: Approximately 60 minutes were spent on the discharge of this patient, 30 of which were spent [id number] with the patient obtaining history and physical and discussing treatment plan. DYLON SUTTON [id number]/[facility] #: [id number] MTDD
[2018-12-04 12:03] VITALS: BP 138/64
== END 2018-12-04 14:00 | disposition home or self-care (01) | DRG 683 ==
LOC: ED 15:29 → MED 19:16
PROVIDERS: ADMIT Internal Medicine; ATTEND Internal Medicine
DX: N17.9 Acute kidney failure, unspecified (principal); L03.115 Cellulitis of right lower limb; J11.1 Influenza due to unidentified influenza virus with other respiratory manifestations; K81.9 Cholecystitis, unspecified; E86.0 Dehydration; F01.50 Vascular dementia, unspecified severity, without behavioral disturbance, psychotic disturbance, mood disturbance, and anxiety; R62.50 Unspecified lack of expected normal physiological development in childhood; F32.9 Major depressive disorder, single episode, unspecified; R10.9 Unspecified abdominal pain; K21.9 Gastro-esophageal reflux disease without esophagitis; F79 Unspecified intellectual disabilities; N35.919 Unspecified urethral stricture, male, unspecified site; H91.92 Unspecified hearing loss, left ear; Z91.040 Latex allergy status; Z88.8 Allergy status to other drugs, medicaments and biological substances; Z91.048 Other nonmedicinal substance allergy status; Z79.1 Long term (current) use of non-steroidal anti-inflammatories (NSAID); Z79.82 Long term (current) use of aspirin; Z79.899 Other long term (current) drug therapy
CPT/HCPCS: 36415; 74176; 76705; 78226; 80048; 80053; 81003; 81015; 83735; 85025; 86140; 87070; 87077; 87086; 87205; 87640; 87641; 93005; 99284; A9270-GY; A9537; J1644; J2543

== ENCOUNTER 2018-12-28 11:45 | Emergency (ER) | payer MEDICARE, MEDICAID ==
--- NOTE | 2018-12-28 11:54 | ED ---
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 Per EMS: Pt suggested that the CP was radiating to his back and arms. Patient appears negative for trauma. PCP is Dr. Mccain. Allergies discussed. No medications were given en route. Pt is on HTN medication. At bedside, pt denies pain. ED provider met EMS and patient in room upon arrival. - History of Current Complaint Hx Obtained From: Patient, EMS Chest Pain Location: Diffuse Chest Pain Radiates: Yes Chest Pain Radiates To:: Back, Arm - Additional Pertinent History Primary Care Physician: [id number] - Allergy/Home Medications Allergies/Adverse Reactions: Allergies Allergy/AdvReac Type Severity Reaction Status Date / Time Adhesive Tape Allergy Severe severe Verified 12/28/18 12:11 skin inflammation latex Allergy Severe See Comment Verified 12/28/18 12:11 cephalexin Allergy Unknown Unknown Verified 12/28/18 12:11 Reaction Details ciprofloxacin Allergy Unknown Verified 12/28/18 12:11 Reaction Details Home Medications: Home Medications Donepezil TAB* [Aricept 5 MG TAB*] 5 mg PO DAILY 12/28/18 [History Confirmed 04/12] Lisinopril TAB* [Prinivil TAB 10 MG*] 10 mg PO DAILY 12/28/18 [History Confirmed 12/28/18] Neomycin/Bacitracin/Polymyxinb [Triple Antibiotic Ointment] 1 applic TOPICAL BID PRN 12/28/18 [History Confirmed 12/28/18] ValACYclovir (*) [Valtrex 500 mg (*)] 1,000 mg PO DAILY PRN 12/28/18 [History Confirmed 12/28/18] Verapamil SR TAB* [Calan Sr TAB*] 240 mg PO DAILY 12/28/18 [History Confirmed ] PMH/Surg Hx/FS Hx/Imm Hx Previously Healthy: No Cardiovascular History: Reports: Hx Hypertension - ON MEDICATION, Hx Peripheral Vascular Disease GI History: Reports: Hx Gastroesophageal Reflux Disease - ON MEDICATION History: Reports: Hx Kidney Stones - HISTORY OF, Other Problems/Disorders - urethral strictures Musculoskeletal History: Reports: Hx Arthritis, Other Musculoskeletal History - VERY STIFF IN AM, Sensory History: Reports: Hx Cataracts - LEFT EYE, Hx Hearing Aid - LEFT EAR Denies: Hx Contacts or Glasses Opthamlomology History: Reports: Hx Cataracts - LEFT EYE Denies: Hx Contacts or Glasses Neurological History: Reports: Other Neuro Impairments/Disorders - SEVERE MENTAL RETARDATION Denies: Hx Dementia Psychiatric History: Reports: Hx Anxiety - ON MEDICTION, Hx Depression - Surgical History Surgery Procedure, Year, and Place: 01/2013-URETHRAL DILITATION[facility] Hx Anesthesia Reactions: No - Family History Family History: LEVEL 5 CAVEAT: FHx LIMITED DUE TO PT CONDITION, DEVELOPMENTAL DELAY - Social History Occupation: Disabled, Retired Lives: Assisted Living - [email or web address] Alcohol Use: None Hx Substance Use: No Substance Use Type: Reports: None Hx Tobacco Use: No Smoking Status (MU): Never Smoked Tobacco Review of Systems - ROS Summary Review of Systems Summary: LEVEL 5 CAVEAT: ROS LIMITED DUE TO PT CONDITION, DEVELOPMENTAL DELAY Positive: Chest Pain All Other Systems Reviewed And Are Negative: No Physical Exam - Summary Physical Exam Summary: VITAL SIGNS: Reviewed. GENERAL: Patient is a well-developed and nourished MALE who is lying comfortable in the stretcher. Patient is not in any acute respiratory distress. HEAD AND FACE: No signs of trauma. No ecchymosis, hematomas or skull depressions. No sinus tenderness. EYES: PERRLA, EOMI x 2, No injected conjunctiva, no nystagmus. EARS: Hearing grossly intact. Ear canals and tympanic membranes are within normal limits. MOUTH: Oropharynx within normal limits. NECK: Supple, trachea is midline, no adenopathy, no JVD, no carotid bruit, no c- spine tenderness, neck with full ROM. CHEST: Symmetric, no tenderness at palpation LUNGS: Clear to auscultation bilaterally. No wheezing or crackles. CVS: Regular rate and rhythm, S1 and S2 present, no murmurs or gallops appreciated. ABDOMEN: Soft, non-tender. No signs of distention. No rebound, no guarding, and no masses palpated. Bowel sounds are normal. EXTREMITIES: FROM in all major joints, no edema, no cyanosis or clubbing. NEURO: Alert but not oriented. SKIN: Dry and warm Triage Information Reviewed: Yes Vital Signs Reviewed: Yes Diagnostics - Laboratory Result Diagrams: 12/28/18 12:44 12/28/18 12:44 Lab Statement: Any lab studies that have been ordered have been reviewed, and results considered in the medical decision making process. - Radiology CXR Radiology Interpretation Completed By: Radiologist Summary of Radiographic Findings: IMPRESSION: Bibasilar atelectasis without significant change since May 05, 2016. ED provider has reviewed this report. - EKG 12:02 Cardiac Rate: NL - 69 bpm EKG Rhythm: Sinus Rhythm EKG Comparison: No Significant Change - from EKG on 12/01/18. Summary of EKG Findings: No ST elevation. Re-Evaluation - Re-Evaluation 1 Re-Evaluation Time: 13:50 Change: Unchanged Comment: Bandage on LUE removed. Patient has small area of cellulitis on wrist. Chest Pain Course/Dx - Course Assessment/Plan: Patient is a 73-year-old male who presents to the emergency department with a chief complaint of having chest pain. This was reported by the EMS. However, when I asked the patient if he has any chest pain he declined. However, patient has history of mental retardation. Chest x-ray impression: Bibasilar atelectasis without any significant change since May 05, 2016. Blood work without any significant abnormality except for slight anemia, creatinine 1.27, and troponin 0.00. In the ED course the patient was given IV fluids for rehydration. Patient continues to be asymptomatic. Patient has an a small cellulitis in the left wrist. Second troponin is 0.00. Therefore the patient will be discharged home with follow-up with PCP. Patient will be given a prescription for Keflex for his cellulitis. I discussed all the findings and test results with the patient. Patient was instructed to return to the emergency room immediately if any of the symptoms return or worsens. Plan of care was discussed with the patient and understands and agrees. All questions were answered at patient satisfaction. There were no further complaints or concerns. Lung exam before discharge: CTA B/L. Good air exchange. No wheezing or crackles heard. CVS: S1 and S2 present. No murmurs appreciated. Patient is alert and oriented x 3. Patient is hemodynamically stable. Patient will be discharged home with follow up PCP in the next 2-3 days. - Chest Pain Differential Diagnosis/HQI/PQRI: Acute GA, ACS, Angina, CHF, Chest Wall, GI Disease, Lower Respiratory Infection - Diagnoses Provider Diagnoses: Atypical chest pain, Cellulitis of wrist Discharge - Sign-Out/Discharge Documenting (check all that apply): Patient Departure - D/C Patient Received Moderate/Deep Sedation with Procedure: No - Discharge Plan Condition: Stable Disposition: HOME Prescriptions: Cephalexin CAP* [Keflex CAP*] 250 mg PO QID #28 cap Patient Education Materials: Chest Pain (ED), Cellulitis (ED) Referrals: Mark Mccain MD [Primary Care Provider] - 3 Days Additional Instructions: RETURN TO THE ED FOR ANY WORSENING OR NEW SYMPTOMS. - Billing Disposition and Condition Condition: STABLE Disposition: Home - Attestation Statements Document Initiated by Claryibe: Yes Documenting Scribe: Felix Carrasco Provider For Whom Claryibmiki is Documenting (Include Credential): Dr. Cas Hugo MD Scribe Attestation: Felix Canales scribed for Dr. Cas Hugo MD on 12/28/18 at 2223. Scribe Documentation Reviewed: Yes Provider Attestation: The documentation as recorded by the Felix tavares accurately reflects the service I personally performed and the decisions made by , Dr. Cas Hugo MD Status of Scribe Document: Viewed
[2018-12-28] MEDS ORDERED: Aspirin 81 mg CHEW TAB* 81 MG TAB.CHEW PO ONE (11:55)
--- OUTSIDE RECORDS SUMMARY | 2018-12-28 12:00 | XMS REPORT | Continuity of Care Document ---
:1945 External Reference #:[id number] Author Name Samantha Olvera Care Team Providers Name Role Phone Mark Mccain MD Primary Care Physician Unavailable Payers Date Identification Numbers Payment Provider Subscriber Policy Number: [id number] Medicare Tigre Neely PayID: [id number] [address] [place] [address] Policy Number: [id number] Medicaid [employer] Neely PayID: [id number] [address] [place] [address] Advance Directives Description No Information Available Problems Date Description Provider Status Onset: 05/22/2016 Convalescence after surgery Chris Chakraborty M.D. Active Family History Description No Information Available Social History Type Date Description Comments Sex Unknown Allergies, Adverse Reactions, Alerts Date Description Reaction Status Severity Comments 05/22/2016 Keflex Active 05/22/2016 Adhesive Active 05/22/2016 Rubber Active Medications Medication Date Status Form Strength Qnty SIG Indications Ordering Provider Calcium Antacid 05/22 Active Chewtabs 500mg prn` Russell Chakraborty M.D. Hydrocerin Active Cream prn Unknown /0000 Guiatuss Active Syrup 100mg/5ML as needed Unknown /0000 for cough Acetaminophen Active 325 2 tablets Unknown /0000 by mouth every 4 hours as needed for pain/feve r Triple Antibiotic Active Ointment 3.5-400-5 apply to Unknown /0000 000 open areas daily as needed Aspirin Active Chewtabs 81mg 1 by Unknown /0000 mouth every day Hydrochlorothiazid Active Tablets 25mg 1 by Unknown e /0000 mouth every day Vascura Active as Unknown /0000 Directed Verapamil HCL ER Active Caps ER 240mg 1 by Unknown /0000 24HR mouth every day Omeprazole Active Capsules DR 20mg 1 by Unknown /0000 mouth every day Pepto-Bismol Active Suspension 262mg/15M as needed Unknown /0000 L for diarrhea Colace Active Capsules 100mg 1 by Unknown /0000 mouth bid Celexa Active Tablets 20mg 1 by Unknown /0000 mouth every day Topicort Active Cream 0.25% prn Unknown /0000 A&D Ointment Active prn Unknown /0000 Aricept Active Tablets 5mg 1 by Unknown /0000 mouth every day Meclizine HCL Active Chewtabs 25mg as needed Unknown /0000 Valtrex Active Tablets 500mg prn` Unknown /0000 Proscar Active Tablets 5mg 1 by Unknown /0000 mouth every day Seroquel Active Tablets 25mg 1 by Unknown /0000 mouth every day Kenalog Active 0.5% prn Unknown /0000 Immunizations Description No Information Available Vital Signs Date Vital Result Comment 07/15/2016 1:18pm Height 73 inches 6'1" Weight 192.00 lb Heart Rate 66 /min BP Systolic Sitting 122 mmHg BP Diastolic Sitting 70 mmHg Pain Level 0 BMI (Body Mass Index) 25.3 kg/m2 06/19/2016 10:22am Height 73 inches 6'1" Weight 192.00 lb Heart Rate 60 /min BP Systolic Sitting 106 mmHg BP Diastolic Sitting 62 mmHg Respiratory Rate 16 /min Body Temperature 97.3 F Pain Level 3 BMI (Body Mass Index) 25.3 kg/m2 05/22/2016 10:39am Height 73 inches 6'1" Weight 194.00 lb Heart Rate 95 /min BP Systolic Sitting 126 mmHg BP Diastolic Sitting 68 mmHg Body Temperature 97.9 F Pain Level 0 O2 % BldC Oximetry 97 % BMI (Body Mass Index) 25.6 kg/m2 Results Test Date Facility Test Result H/L Range Note Type & Screen 05/05/2016 [facility] Patient Blood A Positive N [address] [place] [address] [phone] Antibody Screen NEGATIVE N 1 SHOULDER INJURY COMMING FROM [facility] Procedures Date Code Description Status 11/24/2018 20037 Removal Devitalization Tissue Wound Less Than Equal 20 Completed [facility] CM 11/17/2018 20664 Removal Devitalization Tissue Wound Less Than Equal 20 Completed Square CM 05/07/2016 03502 Stereotactic Computer-Assisted, Spinal Completed 05/07/201643509 Post Segmental Instrumentation 3-6 Segments Completed 05/07/201603943 Post Segmental Instrumentation 3-6 Segments Completed 05/07/2016 09711 Arthrodsis, Post, Addl Segment Completed 05/07/2016 32553 Arthrodsis, Post, Addl Segment Completed 05/07/2016 25213 Arthrodesis Below C2 Posterior Completed 05/07/2016 41185 Arthrodesis Below C2 Posterior Completed 05/07/2016 57568 FX And/Or Dislocation Vertebra Cervical One, Open TX Post Completed [facility] 05/07/2016 60854 FX And/Or Dislocation Vertebra Cervical One, Open TX Post Completed [facility] 06/12/2012 96052 EKG, Interpretation Only Completed Encounters Type Date Location Provider Dx Diagnosis Office Visit 11/17/2018 [facility] Chris Chan L89.899 Pressure ulcer of 2:00p [place] [facility] [place] Ansari other site, unspecified stage I10 Essential (primary) hypertension F72 Severe intellectual disabilities F01.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 [facility] 682.9 Cellulitis & Abscess Unspec Site 319 Unspecified Intellectual Disabilities Office Visit 06/26/2014 3:28p [place] Kiara Weber 038.9 Septicemia Assdimple parekh M.D. [facility] 682.9 Cellulitis & Abscess Unspec Site 319 Unspecified Intellectual Disabilities Office Visit 06/25/2014 3:28p [place] Kiara Weber 038.9 Septicemia Assdimple parekh M.D. [facility] 682.9 Cellulitis & Abscess Unspec Site 319 Unspecified Intellectual Disabilities Office Visit 06/24/2014 3:24p [place] Kiara Knight 038.9 Septicemia Assdimple parekh D.O. [facility] 682.9 Cellulitis & Abscess Unspec Site 319 Unspecified Intellectual Disabilities Office Visit 06/23/2014 3:24p [facility] Antonia 038.9 Septicemia Assoc,dimple Bradford D.O. [facility] 682.9 Cellulitis & Abscess Unspec Site 319 Unspecified Intellectual Disabilities Office Visit 06/22/2014 3:23p [facility] Gus 038.9 Septicemia Assoc,dimple Montemayor M.D. [facility] 682.9 Cellulitis & Abscess Unspec Site 319 Unspecified Intellectual Disabilities Plan of Treatment 07/15/2016 - DYLON Love-CZ48.89 Encounter for other specified surgical aftercareFollow up:As needed
[2018-12-28 12:58] LABS: ABS Basophils 0.1 10^3/ul (0-0.2); ABS Eosinophils 0.3 10^3/ul (0-0.6); ABS Lymphocytes 1.5 10^3/ul (1.0-4.8); ABS Monocytes 0.9 10^3/ul (0-0.8); ABS Neutrophils 5.6 10^3/ul (1.5-7.7); ABS Nucleated RBC 0 10^3/ul; Eosinophil % 3.7 %; Hematocrit 37 % (42-52); Hemoglobin 12.3 g/dl (14.0-18.0); Lymphocyte % 17.8 %; Mean Corpuscular HGB Conc 33 g/dl (31-36); Mean Corpuscular Hemoglobin 30 pg (27-31); Mean Corpuscular Volume 92 fL (80-94); Mean Platelet Volume 7.6 fL (7.4-10.4); Nucleated Red Blood Cells % 0; Platelet Count 271 10^3/ul (150-450); Red Blood Count 4.08 10^6/ul (4.00-5.40); Red Cell Distribution Width 14 % (10.5-15); White Blood Count 8.4 10^3/ul (3.5-10.8)
[2018-12-28 13:16] LABS: Albumin 3.7 g/dL (3.2-5.2); Albumin/Globulin Ratio 1.1 (1-3); BUN/Creatinine Ratio 15.7 (8-20); Calcium 8.9 mg/dL (8.6-10.3); EGFR African American 67.5 (>60); EGFR Non-African American 55.7 (>60); Globulin 3.3 g/dL (2-4); Magnesium 2.1 mg/dL (1.9-2.7); Potassium 4.1 mmol/L (3.5-5.0); Total Bilirubin 0.5 mg/dL (0.2-1.0)
[2018-12-28 13:21] LABS: CKMB ng/mL 1.1 ng/mL (0.6-6.3)
[2018-12-28] MEDS ORDERED: NS 0.9% 1000 ML** 1,000 ML IV ONE (13:32)
[2018-12-28 13:51] LABS: TSH (Thyroid Stimulating Horm) 2.38 mcIU/mL (0.34-5.60)
[2018-12-28] MEDS ORDERED: Bacitracin OINTMENT* 0.5% 0.5 oz TUBE ONE (13:54)
[2018-12-28] MEDS ORDERED: Bacitracin OINTMENT* 0.5% 0.5 oz TUBE TOPICAL ONE (13:55)
[2018-12-28 16:13] VITALS: BP 154/84
== END 2018-12-28 16:42 | disposition home or self-care (01) ==
LOC: ED 11:45
DX: R07.89 Other chest pain (principal); L03.114 Cellulitis of left upper limb; J98.11 Atelectasis; F79 Unspecified intellectual disabilities; R62.50 Unspecified lack of expected normal physiological development in childhood; I10 Essential (primary) hypertension; K21.9 Gastro-esophageal reflux disease without esophagitis; F41.9 Anxiety disorder, unspecified; F32.9 Major depressive disorder, single episode, unspecified; Z88.1 Allergy status to other antibiotic agents; Z91.040 Latex allergy status; Z91.048 Other nonmedicinal substance allergy status
CPT/HCPCS: 36415; 71046; 80053; 82550; 82553; 83605; 83735; 83880; 84443; 84484; 85025; 93005; 96360; 99284; A9270-GY

== ENCOUNTER 2018-12-29 14:39 | Emergency (ER) | payer MEDICARE, MEDICAID ==
[2018-12-29] MEDS ORDERED: NS 0.9% 1000 ML** 1,000 ML IV ONE (17:07)
--- NOTE | 2018-12-29 17:23 | ED ---
GI/ HPI - HPI Summary HPI Summary: 73-year-old male presents from [facility] with abdominal pain today. Per the staff he was complaining of belly pain earlier today. His belly was distended. He also had a fever. Has not had a bowel movement. He is currently being treated for cellulitis of left arm but did not take the Keflex today. He was seen here yesterday for chest pain. Offers no complaints at this time but patient does not express much at baseline. Is smiling on the stretcher. caregiver with patient states that patient is at his baseline. Level 5 cavet due to mental retardation - History of Current Complaint Chief Complaint: EDAbdPain Time Seen by Provider: 12/29/18 17:02 Stated Complaint: FEVER PER STAFF MEMBER Pain Intensity: 6 - Additional Pertinent History Primary Care Physician: JACKIE - Allergy/Home Medications Allergies/Adverse Reactions: Allergies Allergy/AdvReac Type Severity Reaction Status Date / Time Adhesive Tape Allergy Severe severe Verified 12/29/18 14:45 skin inflammation latex Allergy Severe See Comment Verified 12/29/18 14:45 cephalexin Allergy Unknown Unknown Verified 12/29/18 14:45 Reaction Details ciprofloxacin Allergy Unknown Verified 12/29/18 14:45 Reaction Details PMH/Surg Hx/FS Hx/Imm Hx Endocrine/Hematology History: Denies: Hx Anticoagulant Therapy Cardiovascular History: Reports: Hx Hypertension - ON MEDICATION, Hx Peripheral Vascular Disease GI History: Reports: Hx Gastroesophageal Reflux Disease - ON MEDICATION History: Reports: Hx Kidney Stones - HISTORY OF, Other Problems/Disorders - urethral strictures Musculoskeletal History: Reports: Hx Arthritis, Other Musculoskeletal History - VERY STIFF IN AM, Sensory History: Reports: Hx Cataracts - LEFT EYE, Hx Hearing Aid - LEFT EAR Denies: Hx Contacts or Glasses Opthamlomology History: Reports: Hx Cataracts - LEFT EYE Denies: Hx Contacts or Glasses Neurological History: Reports: Other Neuro Impairments/Disorders - SEVERE MENTAL RETARDATION Denies: Hx Dementia Psychiatric History: Reports: Hx Anxiety - ON MEDICTION, Hx Depression - Surgical History Surgery Procedure, Year, and Place: 01/[place] [place] Anesthesia Reactions: No Infectious Disease History: No Infectious Disease History: Denies: Traveled Outside the [place] in Last 30 Days - Family History Known Family History: Positive: Unknown Family History: LEVEL 5 CAVEAT: FHx LIMITED DUE TO PT CONDITION, DEVELOPMENTAL DELAY - Social History Alcohol Use: None Hx Substance Use: No Substance Use Type: Reports: None Hx Tobacco Use: No Smoking Status (MU): Never Smoked Tobacco Review of Systems Positive: Fever Negative: Chest Pain Negative: Shortness Of Breath Positive: Abdominal Pain. Negative: Vomiting, Diarrhea, Nausea All Other Systems Reviewed And Are Negative: Yes Physical Exam Triage Information Reviewed: Yes Vital Signs On Initial Exam: Initial Vitals Temp Pulse Resp BP Pulse Ox 97.6 F 73 18 151/69 96 12/29/18 14:43 12/29/18 14:43 12/29/18 14:43 12/29/18 14:43 12/29/18 14:43 Vital Signs Reviewed: Yes Appearance: Positive: Well-Appearing Skin: Positive: Warm, Dry Head/Face: Positive: Normal Head/Face Inspection Eyes: Positive: Normal, Conjunctiva Clear ENT: Positive: Pharynx normal Respiratory/Lung Sounds: Positive: Clear to Auscultation, Breath Sounds Present Cardiovascular: Positive: Normal, RRR Abdomen Description: Positive: Nontender, Soft, Other: - smiles and laughs when press on belly Bowel Sounds: Positive: Present Musculoskeletal: Positive: Normal Neurological: Positive: Normal Psychiatric: Positive: Normal Diagnostics - Vital Signs Vital Signs Temp Pulse Resp BP Pulse Ox 12/29/18 14:43 97.6 F 73 18 151/69 96 - Laboratory Result Diagrams: 12/29/18 17:45 12/29/18 17:45 Lab Statement: Any lab studies that have been ordered have been reviewed, and results considered in the medical decision making process. - CT abd CT Interpretation Completed By: Radiologist Summary of CT Findings: IMPRESSION: 1. Findings of cystitis. 2. Small left effusion with associated left lower lobe volume loss. 3. Bosniak type I renal cyst. No followup indicated. 4. Bilateral inguinal hernias. No strangulation. - Ultrasound No standard instances Ultrasound Interpretation Completed By: Radiologist Summary of Ultrasound Findings: IMPRESSION: Cholelithiasis without biliary duct dilatation. - EKG No standard instances Cardiac Rate: NL EKG Rhythm: Sinus Rhythm EKG Comparison: No Significant Change Summary of EKG Findings: sinus rhythm Re-Evaluation - Re-Evaluation First Eval Comment: still no belly pain, but wbc elevated so will get ct Third Eval Re-Evaluation Time: 19:57 Change: Unchanged Comment: nontender abd, offers no compliants GIGU Course/Dx - Course Course Of Treatment: 73-year-old male presents with belly pain and fever earlier today. Information is provided via caregivers as patient has been some mental retardation. Afebrile here. On exam lungs clear auscultation. Abdomen soft nontender. EKG similar to previous in a sinus rhythm. wbc 20 when was normal yesterday. crp elevated. troponin .04. lfts normal. Ultrasound just shows gallstones. urine shows a uti. with wbc got CT. ct shows uti. will treat with augmentin. told to stop keflex as has allergy to such. discussed with dr mosher who says can discharge patient as vital stable. told if develop persistent fevers to return. patient understand and agrees with plan. - Diagnoses Differential Diagnoses - Male: Cholecystitis, Cholelithiasis, Urinary Tract Infection Provider Diagnoses: UTI (urinary tract infection), Cholelithiasis Discharge - Sign-Out/Discharge Documenting (check all that apply): Patient Departure Patient Received Moderate/Deep Sedation with Procedure: No - Discharge Plan Condition: Good Disposition: HOME Prescriptions: Amoxicillin/Clavulanate TAB* [Augmentin TAB 875*] 875 mg PO BID #17 tab Patient Education Materials: Urinary Tract Infection in Men (ED) Referrals: Mark Mccain MD [Primary Care Provider] - Keith Montoya MD [Medical Doctor] - Additional Instructions: stop keflex, start augmentin twice a day for 10 days to cover for cellulitis and uti encourage fluids Follow up with surgery about gallstones, is not infected at moment Follow up with primary within 5 days Return to ED if develop any persistent fevers, vomiting, or any new or worsening symptoms - Billing Disposition and Condition Condition: GOOD Disposition: Home
[2018-12-29 18:15] LABS: Hematocrit 37 % (42-52); Hemoglobin 12.3 g/dl (14.0-18.0); Mean Corpuscular HGB Conc 33 g/dl (31-36); Mean Corpuscular Hemoglobin 30 pg (27-31); Mean Corpuscular Volume 91 fL (80-94); Mean Platelet Volume 7.6 fL (7.4-10.4); Platelet Count 236 10^3/ul (150-450); Red Blood Count 4.11 10^6/ul (4.00-5.40); Red Cell Distribution Width 14 % (10.5-15); White Blood Count 20.2 10^3/ul (3.5-10.8)
[2018-12-29 18:30] LABS: ALT 13 U/L (7-52); AST 13 U/L (13-39); Albumin 3.7 g/dL (3.2-5.2); Albumin/Globulin Ratio 1.1 (1-3); Alkaline Phosphatase 108 U/L (34-104); Amylase 26 U/L (29-103); Anion Gap 6 mmol/L (2-11); BUN/Creatinine Ratio 15.4 (8-20); Blood Urea Nitrogen 24 mg/dL (6-24); C Reactive Protein 105.39 mg/L (<8.01); CO2 Carbon Dioxide 26 mmol/L (22-32); Chloride 105 mmol/L (101-111); EGFR African American 53.2 (>60); Globulin 3.4 g/dL (2-4); Glucose 111 mg/dL (70-100); Potassium 4.3 mmol/L (3.5-5.0); Sodium 137 mmol/L (135-145); Total Protein 7.1 g/dL (6.4-8.9)
[2018-12-29 18:31] LABS: Troponin I 0.04 ng/mL (<0.04)
[2018-12-29 18:45] LABS: ABS Basophils 0.1 10^3/ul (0-0.2); ABS Eosinophils 0 10^3/ul (0-0.6); ABS Lymphocytes 1.9 10^3/ul (1.0-4.8); ABS Monocytes 2.2 10^3/ul (0-0.8); ABS Neutrophils 16.1 10^3/ul (1.5-7.7); ABS Nucleated RBC 0 10^3/ul; Eosinophil % 0.1 %; Lymphocyte % 9.3 %; Nucleated Red Blood Cells % 0
[2018-12-29] MEDS ORDERED: Iodixanol* (CONTRAST) 320 MG/ML 100 ML SDV IV ONE (19:21)
[2018-12-29 20:53] LABS: Urine Appearance Turbid; Urine Bacteria Absent (Absent); Urine Bilirubin Negative (Negative); Urine Blood 1+ (Negative); Urine Color Amber; Urine Glucose Negative (Negative); Urine Ketones Negative (Negative); Urine Nitrite Negative (Negative); Urine Protein 2+(100 mg/dL) (Negative); Urine Red Blood Cell 3+(>10/hpf) (Absent); Urine Specific Gravity 1.018 (1.010-1.030); Urine Squamous Epithelial Cell Present (Absent); Urine Urobilinogen Negative (Negative); Urine White Blood Cell 3+(>20/hpf) (Absent)
[2018-12-29] MEDS ORDERED: Amoxicillin/Clavulanate TAB* 875 MG PO ONE ×3 (22:40→22:46)
[2018-12-29 23:17] VITALS: BP 135/68
== END 2018-12-29 23:16 | disposition home or self-care (01) ==
LOC: ED 14:39
DX: N39.0 Urinary tract infection, site not specified (principal); K80.20 Calculus of gallbladder without cholecystitis without obstruction; N28.1 Cyst of kidney, acquired; K40.20 Bilateral inguinal hernia, without obstruction or gangrene, not specified as recurrent; L03.114 Cellulitis of left upper limb; I10 Essential (primary) hypertension; K21.9 Gastro-esophageal reflux disease without esophagitis; Z87.442 Personal history of urinary calculi; F41.9 Anxiety disorder, unspecified; Z88.1 Allergy status to other antibiotic agents; Z91.040 Latex allergy status; Z91.048 Other nonmedicinal substance allergy status
CPT/HCPCS: 36415; 74177; 76705; 80053; 81003; 81015; 82150; 83605; 83690; 84484; 85025; 86140; 87077; 87086; 87186; 93005; 99283; A9270-GY; Q9967

== ENCOUNTER 2020-04-02 17:22 | Observation (INO) ==
[2020-04-02] MEDS ORDERED: Labetalol IV 5 MG/ML 20 ml VIAL IV PUSH ONE (19:27)
[2020-04-02 19:47] LABS: ABS Basophils 0.1 10^3/ul (0-0.2); ABS Eosinophils 0.5 10^3/ul (0-0.6); ABS Lymphocytes 1.7 10^3/ul (1.0-4.8); ABS Monocytes 0.9 10^3/ul (0-0.8); Eosinophil % 5.4 %; Hematocrit 38 % (42-52); Hemoglobin 12.8 g/dL (14.0-18.0); Lymphocyte % 19.1 %; Mean Corpuscular HGB Conc 34 g/dL (31-36); Mean Corpuscular Hemoglobin 30 pg (27-31); Mean Corpuscular Volume 90 fL (80-94); Mean Platelet Volume 7.5 fL (7.4-10.4); Platelet Count 276 10^3/uL (150-450); Red Cell Distribution Width 14 % (10-15); White Blood Count 8.7 10^3/uL (3.5-10.8)
[2020-04-02 20:08] LABS: Albumin/Globulin Ratio 1.2 (1-3); BUN/Creatinine Ratio 19.3 (8-20); Calcium 9.1 mg/dL (8.6-10.3); EGFR African American 59.9 (>60); EGFR Non-African American 49.5 (>60); Globulin 3.3 g/dL (2-4); Potassium 4.5 mmol/L (3.5-5.0); Total Bilirubin 0.4 mg/dL (0.2-1.0); Total Protein 7.3 g/dL (6.4-8.9)
[2020-04-02] MEDS ORDERED: Ondansetron 4 mg VIAL 2 MG/ML 2 ml VIAL IV PRN (21:35)
[2020-04-02 21:51] LABS: Activated Partial Thrombo Time 30.9 seconds (26.0-38.0); INR 1.06 (0.82-1.09)
[2020-04-02 21:56] LABS: C Reactive Protein 4.25 mg/L (<8.01)
[2020-04-02] MEDS ORDERED: Heparin 5000 UNITS/ML VIAL(*) 1 ml vial SUBCUT SCH (22:00)
[2020-04-02 22:51] LABS: Erythrocyte Sed Rate 15 mm/Hr (0-19)
[2020-04-03] MEDS: hydrALAZINE 20 mg/ml 1 ML Vial IV IV SLOW PU PRN ×2 (00:42→13:27)
[2020-04-03 06:45] LABS: ABS Basophils 0.1 10^3/ul (0-0.2); ABS Eosinophils 0.2 10^3/ul (0-0.6); ABS Lymphocytes 1.3 10^3/ul (1.0-4.8); ABS Monocytes 0.7 10^3/ul (0-0.8); Eosinophil % 3.2 %; Hematocrit 35 % (42-52); Hemoglobin 12.2 g/dL (14.0-18.0); Lymphocyte % 17.9 %; Mean Corpuscular HGB Conc 34 g/dL (31-36); Mean Corpuscular Hemoglobin 31 pg (27-31); Mean Corpuscular Volume 90 fL (80-94); Mean Platelet Volume 7.3 fL (7.4-10.4); Platelet Count 253 10^3/uL (150-450); Red Blood Count 3.96 10^6 /uL (4.18-5.48); Red Cell Distribution Width 14 % (10-15)
[2020-04-03 06:54] LABS: INR 1.17 (0.82-1.09)
[2020-04-03 07:01] LABS: BUN/Creatinine Ratio 17.4 (8-20); Calcium 8.8 mg/dL (8.6-10.3); Potassium 4.5 mmol/L (3.5-5.0)
[2020-04-03] MEDS: Heparin 5000 UNITS/ML VIAL(*) 1 ml vial SUBCUT SCH ×2 (10:18→16:30)
[2020-04-03] MEDS ORDERED: Furosemide 20 mg/2 ml IV VIAL IV ONE (12:10)
[2020-04-03] MEDS ORDERED: Perflutren Lipid Microsphere 3 ML VIAL ONE (13:56)
[2020-04-04] MEDS: Heparin 5000 UNITS/ML VIAL(*) 1 ml vial SUBCUT SCH ×3 (04:55→14:53)
[2020-04-04 06:10] LABS: ABS Eosinophils 0.4 10^3/ul (0-0.6); ABS Lymphocytes 1.5 10^3/ul (1.0-4.8); ABS Monocytes 0.9 10^3/ul (0-0.8); Eosinophil % 5.8 %; Hematocrit 36 % (42-52); Hemoglobin 12.2 g/dL (14.0-18.0); Mean Corpuscular HGB Conc 34 g/dL (31-36); Mean Corpuscular Hemoglobin 30 pg (27-31); Mean Corpuscular Volume 89 fL (80-94); Mean Platelet Volume 7.5 fL (7.4-10.4); Nucleated Red Blood Cells % 0.1; Platelet Count 227 10^3/uL (150-450); Red Blood Count 4.01 10^6 /uL (4.18-5.48); Red Cell Distribution Width 15 % (10-15); White Blood Count 6.7 10^3/uL (3.5-10.8)
[2020-04-04 06:25] LABS: BUN/Creatinine Ratio 17.4 (8-20); EGFR African American 55.8 (>60); EGFR Non-African American 46.1 (>60); Potassium 4.3 mmol/L (3.5-5.0)
[2020-04-04 12:40] VITALS: BP 150/82
== END 2020-04-04 14:30 | disposition home or self-care (01) ==
LOC: MED 17:22 → ED 17:22 → MED 04-03 00:12
PROVIDERS: ADMIT Nurse Practitioner Family; ATTEND Internal Medicine

== ENCOUNTER 2020-05-01 14:43 | Inpatient (IN) ==
[2020-05-01] MEDS ORDERED: Lorazepam PYXIS KEY ONE (15:53)
[2020-05-01] MEDS ORDERED: LORazepam 2 mg VIAL 1 ml ONE (15:54)
[2020-05-01 16:35] LABS: ABS Basophils 0.1 10^3/ul (0-0.2); ABS Eosinophils 0.1 10^3/ul (0-0.6); ABS Lymphocytes 0.9 10^3/ul (1.0-4.8); ABS Monocytes 1.4 10^3/ul (0-0.8); ABS Neutrophils 12.1 10^3/ul (1.5-7.7); Eosinophil % 0.6 %; Hematocrit 30 % (42-52); Hemoglobin 9.9 g/dL (14.0-18.0); Lymphocyte % 5.9 %; Mean Corpuscular HGB Conc 33 g/dL (31-36); Mean Corpuscular Hemoglobin 30 pg (27-31); Mean Corpuscular Volume 90 fL (80-94); Mean Platelet Volume 7.5 fL (7.4-10.4); Platelet Count 418 10^3/uL (150-450); Red Blood Count 3.32 10^6 /uL (4.18-5.48); Red Cell Distribution Width 15 % (10-15); White Blood Count 14.5 10^3/uL (3.5-10.8)
[2020-05-01 16:46] LABS: Albumin 2.7 g/dL (3.2-5.2); Amylase 27 U/L (29-103); CO2 Carbon Dioxide 22 mmol/L (22-32); Calcium 8.4 mg/dL (8.6-10.3); Chloride 105 mmol/L (101-111); Sodium 135 mmol/L (135-145)
[2020-05-01 16:52] LABS: ALT 21 U/L (7-52); Albumin/Globulin Ratio 0.7 (1-3); Alkaline Phosphatase 127 U/L (34-104); BUN/Creatinine Ratio 9.5 (8-20); Blood Urea Nitrogen 13 mg/dL (6-24); C Reactive Protein 51.54 mg/L (<8.01); Creatine Kinase 42 U/L (10-223); EGFR African American 61.5 (>60); EGFR Non-African American 50.8 (>60); Globulin 3.7 g/dL (2-4); Glucose 104 mg/dL (70-100); Lipase 17 U/L (11.0-82.0); Total Protein 6.4 g/dL (6.4-8.9)
[2020-05-01] MEDS ORDERED: LORazepam 2 mg VIAL 1 ml IV PUSH ONE (16:59)
[2020-05-01] MEDS ORDERED: Lorazepam PYXIS KEY PRN (16:59)
[2020-05-01 17:00] LABS: Anion Gap 8 mmol/L (2-11)
[2020-05-01] MEDS ORDERED: Iodixanol (CONTRAST) 320 MG/ML 100 ML SDV IV ONE (17:02)
[2020-05-01 17:15] LABS: Troponin I 0.01 ng/mL (<0.03)
[2020-05-01 17:17] LABS: CKMB ng/mL 1.2 ng/mL (0.6-6.3)
[2020-05-01] MEDS ORDERED: Piperacillin/Tazobac ADVAN 3.375 GM in NS 0.9% 100 ml BAG 100 ML IVPB ONE ×2 (18:12→19:37)
[2020-05-01] MEDS ORDERED: NS 0.9% 1000 ml BAG 1,000 ML IV SCH (18:30)
[2020-05-01] MEDS ORDERED: Piperacillin/Tazobac 3.375 GM BAG ONE (19:02)
[2020-05-01] MEDS ORDERED: Piperacillin/Tazobac 3.375 GM BAG IV ONE (19:09)
[2020-05-01] MEDS ORDERED: Vancomycin 1,000 MG in NS 0.9% 250 ml 250 ML IVPB ONE (19:37)
[2020-05-01] MEDS ORDERED: Ondansetron 4 mg VIAL 2 MG/ML 2 ml VIAL IV PRN (19:37)
[2020-05-01] MEDS ORDERED: Vancomycin per Pharmacy 1 EA NOTE FOLLOW UP SCH (20:00)
[2020-05-01 20:58] LABS: Activated Partial Thrombo Time 27.4 seconds (26.0-38.0); INR 1.36 (0.82-1.09)
[2020-05-01] MEDS ORDERED: Labetalol IV 5 MG/ML 20 ml VIAL IV PUSH ONE (21:41)
[2020-05-01] MEDS ORDERED: Labetalol IV 5 MG/ML 20 ml VIAL ONE (21:43)
[2020-05-01] MEDS: hydrALAZINE 20 mg/ml 1 ML Vial IV IV SLOW PU PRN (23:55)
[2020-05-02] MEDS: Heparin 5000 UNITS/ML 1 mL VIAL SUBCUT SCH ×4 (01:21→22:48)
[2020-05-02] MEDS ORDERED: Zosyn per Pharmacy NOTE FOLLOW UP SCH (08:00)
[2020-05-02] MEDS ORDERED: ZOSYN 3.375 GM x ONE DOSE over 30 miuntes IV (08:00)
[2020-05-02] MEDS: Pantoprazole VIAL 40 MG VIAL IV SCH (10:25)
[2020-05-02] MEDS: Vancomycin 1,000 MG in NS 0.9% 250 ml 250 ML IV SCH (13:16)
[2020-05-02] MEDS ORDERED: ZOSYN 3.375 GM Q8H per EXTENDED INFUSION IV SCH (14:30)
[2020-05-02 15:38] LABS: ABS Basophils 0.1 10^3/ul (0-0.2); ABS Eosinophils 0.4 10^3/ul (0-0.6); ABS Lymphocytes 1.1 10^3/ul (1.0-4.8); ABS Monocytes 1.5 10^3/ul (0-0.8); Hematocrit 28 % (42-52); Hemoglobin 9.1 g/dL (14.0-18.0); Lymphocyte % 8.1 %; Mean Corpuscular HGB Conc 33 g/dL (31-36); Mean Corpuscular Hemoglobin 29 pg (27-31); Mean Corpuscular Volume 90 fL (80-94); Mean Platelet Volume 6.9 fL (7.4-10.4); Platelet Count 337 10^3/uL (150-450); Red Cell Distribution Width 15 % (10-15); White Blood Count 14.1 10^3/uL (3.5-10.8)
[2020-05-02 15:48] LABS: INR 1.51 (0.82-1.09)
[2020-05-02] MEDS ORDERED: Midazolam 10 mg/10 ml VIAL 1 mg/ml 10 ml VIAL (10 mg) IV SLOW PU ONE (16:00)
[2020-05-02 16:15] LABS: Albumin 2.9 g/dL (3.2-5.2); Albumin/Globulin Ratio 0.9 (1-3); BUN/Creatinine Ratio 10.7 (8-20); Calcium 8.2 mg/dL (8.6-10.3); EGFR African American 64.7 (>60); EGFR Non-African American 53.5 (>60); Globulin 3.3 g/dL (2-4); Potassium 4.4 mmol/L (3.5-5.0); Total Protein 6.2 g/dL (6.4-8.9)
[2020-05-02] MEDS: hydrALAZINE 20 mg/ml 1 ML Vial IV IV SLOW PU PRN (17:16)
[2020-05-02] MEDS: metroNIDAZOLE IV 500 MG/100ML 500 MG/100 ML BAG IVPB SCH (18:10)
[2020-05-02] MEDS: NS 0.9% 1000 ml BAG 1,000 ML IV SCH (18:24)
[2020-05-02] MEDS: Cefepime 2 GM in Dextrose 2 GM/50 ML BAG IV SCH (20:11)
[2020-05-03] MEDS: Vancomycin 1,000 MG in NS 0.9% 250 ml 250 ML IV SCH ×2 (00:18→12:43)
[2020-05-03] MEDS: metroNIDAZOLE IV 500 MG/100ML 500 MG/100 ML BAG IVPB SCH ×3 (02:15→17:37)
[2020-05-03] MEDS: hydrALAZINE 20 mg/ml 1 ML Vial IV IV SLOW PU PRN ×3 (04:26→22:14)
[2020-05-03 05:06] LABS: ABS Basophils 0.1 10^3/ul (0-0.2); ABS Eosinophils 0.6 10^3/ul (0-0.6); ABS Lymphocytes 0.8 10^3/ul (1.0-4.8); ABS Monocytes 1.1 10^3/ul (0-0.8); ABS Neutrophils 8.7 10^3/ul (1.5-7.7); Hematocrit 25 % (42-52); Hemoglobin 8.4 g/dL (14.0-18.0); Lymphocyte % 7.2 %; Mean Corpuscular HGB Conc 34 g/dL (31-36); Mean Corpuscular Hemoglobin 30 pg (27-31); Mean Corpuscular Volume 89 fL (80-94); Platelet Count 308 10^3/uL (150-450); Red Blood Count 2.82 10^6 /uL (4.18-5.48); Red Cell Distribution Width 15 % (10-15); White Blood Count 11.3 10^3/uL (3.5-10.8)
[2020-05-03 05:13] LABS: INR 1.51 (0.82-1.09)
[2020-05-03 05:23] LABS: ALT 18 U/L (7-52); AST 15 U/L (13-39); Albumin 2.7 g/dL (3.2-5.2); Albumin/Globulin Ratio 0.8 (1-3); Alkaline Phosphatase 119 U/L (34-104); Anion Gap 6 mmol/L (2-11); BUN/Creatinine Ratio 11.3 (8-20); Blood Urea Nitrogen 15 mg/dL (6-24); CO2 Carbon Dioxide 22 mmol/L (22-32); Calcium 7.8 mg/dL (8.6-10.3); Chloride 108 mmol/L (101-111); EGFR African American 63.6 (>60); EGFR Non-African American 52.6 (>60); Globulin 3.3 g/dL (2-4); Glucose 93 mg/dL (70-100); Potassium 3.9 mmol/L (3.5-5.0); Sodium 136 mmol/L (135-145)
[2020-05-03] MEDS: Heparin 5000 UNITS/ML 1 mL VIAL SUBCUT SCH ×3 (06:28→21:19)
[2020-05-03] MEDS: Pantoprazole VIAL 40 MG VIAL IV SCH (08:27)
[2020-05-03 09:04] LABS: Total Iron Binding Capacity 182 mcg/dL (250-450); Transferrin 130 mg/dL (203-362)
[2020-05-03 09:05] LABS: % Iron Saturation 11 % (15-55); Iron < 20 ug/dL (50-212); Unsaturated Iron Binding < 167 ug/dL
[2020-05-03 09:23] LABS: Ferritin 209.2 ng/mL (24-336)
[2020-05-03] MEDS: NS 0.9% 1000 ml BAG 1,000 ML IV SCH ×2 (09:25→19:39)
[2020-05-03] MEDS: Cefepime 2 GM in Dextrose 2 GM/50 ML BAG IV SCH ×2 (09:25→19:33)
[2020-05-03] MEDS ORDERED: Vancomycin Trough Check NOTE FOLLOW UP ONE (11:30)
[2020-05-03] MEDS: Senna TAB 8.6 mg TAB PO PRN (14:40)
[2020-05-04] MEDS: Vancomycin 1,000 MG in NS 0.9% 250 ml 250 ML IV SCH ×2 (00:30→13:21)
[2020-05-04] MEDS ORDERED: Furosemide 20 mg/2 ml IV VIAL IV SLOW PU ONE (00:51)
[2020-05-04] MEDS: metroNIDAZOLE IV 500 MG/100ML 500 MG/100 ML BAG IVPB SCH ×4 (03:13→21:45)
[2020-05-04] MEDS ORDERED: Labetalol IV 5 MG/ML 20 ml VIAL IV PUSH ONE (04:13)
[2020-05-04] MEDS: Heparin 5000 UNITS/ML 1 mL VIAL SUBCUT SCH ×3 (05:58→22:09)
[2020-05-04] MEDS: hydrALAZINE 20 mg/ml 1 ML Vial IV IV SLOW PU PRN ×2 (05:58→22:09)
[2020-05-04] MEDS: Cefepime 2 GM in Dextrose 2 GM/50 ML BAG IV SCH ×2 (08:23→23:08)
[2020-05-04] MEDS: Pantoprazole VIAL 40 MG VIAL IV SCH (08:24)
[2020-05-05] MEDS ORDERED: Al Hydrox/Mg Hydrox/Simet LIQ 30 ML UDC PO ONE (00:33)
[2020-05-05] MEDS ORDERED: Labetalol IV 5 MG/ML 20 ml VIAL IV PUSH ONE (04:44)
[2020-05-05] MEDS: Heparin 5000 UNITS/ML 1 mL VIAL SUBCUT SCH (05:09)
[2020-05-05 05:58] LABS: ABS Basophils 0.1 10^3/ul (0-0.2); ABS Eosinophils 0.2 10^3/ul (0-0.6); ABS Lymphocytes 0.9 10^3/ul (1.0-4.8); ABS Monocytes 0.8 10^3/ul (0-0.8); ABS Neutrophils 5.5 10^3/ul (1.5-7.7); Hematocrit 29 % (42-52); Hemoglobin 9.4 g/dL (14.0-18.0); Lymphocyte % 11.7 %; Mean Corpuscular HGB Conc 33 g/dL (31-36); Mean Corpuscular Hemoglobin 29 pg (27-31); Mean Corpuscular Volume 89 fL (80-94); Mean Platelet Volume 7.3 fL (7.4-10.4); Nucleated Red Blood Cells % 0.1; Platelet Count 382 10^3/uL (150-450); Red Blood Count 3.21 10^6 /uL (4.18-5.48); Red Cell Distribution Width 15 % (10-15); White Blood Count 7.4 10^3/uL (3.5-10.8)
[2020-05-05 06:09] LABS: BUN/Creatinine Ratio 11.8 (8-20); Calcium 8.2 mg/dL (8.6-10.3); EGFR African American 72.3 (>60); EGFR Non-African American 59.8 (>60); Potassium 3.5 mmol/L (3.5-5.0)
[2020-05-05] MEDS: Amoxicillin/Clavul 875/125 TAB (Augmentin 875 tab) PO SCH ×2 (08:18→20:48)
[2020-05-05] MEDS: Enoxaparin 40 MG/0.4 ML SYR SUBCUT SCH (08:18)
[2020-05-05] MEDS ORDERED: Iron Sucrose 200 MG in NS 0.9% 100 ml BAG 100 ML IVPB ONE (08:30)
[2020-05-06 06:46] LABS: ABS Basophils 0.1 10^3/ul (0-0.2); ABS Eosinophils 0.4 10^3/ul (0-0.6); ABS Lymphocytes 1.2 10^3/ul (1.0-4.8); ABS Monocytes 1.1 10^3/ul (0-0.8); ABS Neutrophils 4.6 10^3/ul (1.5-7.7); Eosinophil % 4.9 %; Hematocrit 30 % (42-52); Hemoglobin 10.1 g/dL (14.0-18.0); Mean Corpuscular HGB Conc 34 g/dL (31-36); Mean Corpuscular Hemoglobin 30 pg (27-31); Mean Corpuscular Volume 89 fL (80-94); Mean Platelet Volume 7.4 fL (7.4-10.4); Nucleated Red Blood Cells % 0.1; Platelet Count 399 10^3/uL (150-450); Red Blood Count 3.34 10^6 /uL (4.18-5.48); Red Cell Distribution Width 15 % (10-15); White Blood Count 7.3 10^3/uL (3.5-10.8)
[2020-05-06 07:03] LABS: BUN/Creatinine Ratio 10.4 (8-20); Calcium 8.1 mg/dL (8.6-10.3); EGFR African American 75.2 (>60); EGFR Non-African American 62.2 (>60); Magnesium 1.9 mg/dL (1.9-2.7); Potassium 3.4 mmol/L (3.5-5.0)
[2020-05-06] MEDS ORDERED: Iron Sucrose 200 MG in NS 0.9% 100 ml BAG 100 ML IVPB ONE (07:41)
[2020-05-06] MEDS: Enoxaparin 40 MG/0.4 ML SYR SUBCUT SCH (10:23)
[2020-05-06] MEDS: Amoxicillin/Clavul 875/125 TAB (Augmentin 875 tab) PO SCH (10:23)
[2020-05-06] MEDS ORDERED: Vancomycin Trough Check NOTE FOLLOW UP ONE (11:30)
[2020-05-06] MEDS: Senna TAB 8.6 mg TAB PO PRN (21:21)
[2020-05-06] MEDS: Amoxicillin/Clavulan ORALSYR 80 MG/ML (400 MG/5 ML) PO SCH (21:22)
[2020-05-07] MEDS: Enoxaparin 40 MG/0.4 ML SYR SUBCUT SCH (09:01)
[2020-05-07] MEDS: Amoxicillin/Clavulan ORALSYR 80 MG/ML (400 MG/5 ML) PO SCH ×2 (09:01→21:24)
[2020-05-07] MEDS: Iron Sucrose 200 MG in NS 0.9% 100 ml BAG 100 ML IVPB SCH (17:41)
[2020-05-08] MEDS: Iron Sucrose 200 MG in NS 0.9% 100 ml BAG 100 ML IVPB SCH (08:50)
[2020-05-08] MEDS: Amoxicillin/Clavulan ORALSYR 80 MG/ML (400 MG/5 ML) PO SCH ×2 (08:50→21:12)
[2020-05-08] MEDS: Enoxaparin 40 MG/0.4 ML SYR SUBCUT SCH (08:50)
[2020-05-09] MEDS: Iron Sucrose 200 MG in NS 0.9% 100 ml BAG 100 ML IVPB SCH (08:55)
[2020-05-09] MEDS: Enoxaparin 40 MG/0.4 ML SYR SUBCUT SCH (08:55)
[2020-05-09 11:01] LABS: Hematocrit 33 % (42-52); Hemoglobin 11.2 g/dL (14.0-18.0); Mean Corpuscular HGB Conc 34 g/dL (31-36); Mean Corpuscular Hemoglobin 30 pg (27-31); Mean Corpuscular Volume 89 fL (80-94); Mean Platelet Volume 7.3 fL (7.4-10.4); Platelet Count 455 10^3/uL (150-450); Red Blood Count 3.71 10^6 /uL (4.18-5.48); Red Cell Distribution Width 15 % (10-15); White Blood Count 9.9 10^3/uL (3.5-10.8)
[2020-05-09 11:47] LABS: BUN/Creatinine Ratio 12.6 (8-20); Calcium 8.3 mg/dL (8.6-10.3); EGFR African American 48.9 (>60); EGFR Non-African American 40.4 (>60); Potassium 2.9 mmol/L (3.5-5.0)
[2020-05-09 12:04] LABS: ABS Basophils 0.1 10^3/ul (0-0.2); ABS Eosinophils 0.4 10^3/ul (0-0.6); ABS Lymphocytes 1.2 10^3/ul (1.0-4.8); ABS Monocytes 0.8 10^3/ul (0-0.8); ABS Neutrophils 7.4 10^3/ul (1.5-7.7); Eosinophil % 3.7 %; Lymphocyte % 12.2 %; Nucleated Red Blood Cells % 0.1
[2020-05-09] MEDS ORDERED: Potassium Chlor 20 meq TAB.ER PO SCH (16:00)
[2020-05-09] MEDS ORDERED: Potassium Chloride LIQUID 20 MEQ/15 ML LIQUID PO ONE (16:05)
[2020-05-10 06:15] VITALS: BP 154/73
[2020-05-10] MEDS: Enoxaparin 40 MG/0.4 ML SYR SUBCUT SCH (08:56)
[2020-05-10] MEDS ORDERED: Potassium Chloride LIQUID 20 MEQ/15 ML LIQUID PO SCH (09:00)
== END 2020-05-10 11:15 | disposition home health service (06) | DRG 871 ==
LOC: ED 14:43 → MED 19:30
PROVIDERS: ADMIT Pediatrics; ATTEND Internal Medicine

== ENCOUNTER 2020-06-24 14:13 | Inpatient (IN) ==
[2020-06-24 15:40] LABS: ABS Basophils 0.1 10^3/ul (0-0.2); ABS Eosinophils 0.4 10^3/ul (0-0.6); ABS Lymphocytes 1.1 10^3/ul (1.0-4.8); ABS Monocytes 1.1 10^3/ul (0-0.8); ABS Neutrophils 6.2 10^3/ul (1.5-7.7); Eosinophil % 4.5 %; Hematocrit 36 % (42-52); Hemoglobin 12.5 g/dL (14.0-18.0); Mean Corpuscular HGB Conc 34 g/dL (31-36); Mean Corpuscular Hemoglobin 31 pg (27-31); Mean Corpuscular Volume 90 fL (80-94); Mean Platelet Volume 8.1 fL (7.4-10.4); Platelet Count 262 10^3/uL (150-450); Red Blood Count 4.05 10^6 /uL (4.18-5.48); Red Cell Distribution Width 15 % (10-15); White Blood Count 8.8 10^3/uL (3.5-10.8)
[2020-06-24 16:02] LABS: Albumin 3.5 g/dL (3.2-5.2); Albumin/Globulin Ratio 0.9 (1-3); Calcium 9.4 mg/dL (8.6-10.3); EGFR African American 50.3 (>60); EGFR Non-African American 41.6 (>60); Globulin 3.8 g/dL (2-4); Potassium 3.8 mmol/L (3.5-5.0); Total Bilirubin 0.6 mg/dL (0.2-1.0); Total Protein 7.3 g/dL (6.4-8.9)
[2020-06-24 16:53] LABS: Urine Appearance Cloudy; Urine Color Straw; Urine Ketones Negative (Negative); Urine Protein 3+(>=500 mg/dL) (Negative); Urine Urobilinogen Negative (Negative)
[2020-06-24] MEDS ORDERED: Iodixanol (CONTRAST) 320 MG/ML 100 ML SDV IV ONE (16:53)
[2020-06-24 16:54] LABS: Urine Bilirubin Negative (Negative); Urine Blood Negative (Negative); Urine Glucose Negative (Negative); Urine Nitrite Negative (Negative)
[2020-06-24 16:57] LABS: Urine Bacteria 3+ (Absent); Urine White Blood Cell 3+(>20/hpf) (Absent)
[2020-06-24] MEDS ORDERED: Sulfamethox/Trimethoprim DS TAB 800/160 mg PO ONE (17:54)
[2020-06-24] MEDS ORDERED: Ondansetron 4 mg VIAL 2 MG/ML 2 ml VIAL IV PRN (19:21)
[2020-06-24] MEDS ORDERED: diPHENhydraMINE 25 mg TAB PO PRN (19:23)
[2020-06-24] MEDS: cefTRIAXone 1 gm/50 mL NS BAG 1 GM/50 ML BAG IVPB SCH (23:24)
[2020-06-24] MEDS: Enoxaparin 40 MG/0.4 ML SYR SUBCUT SCH (23:25)
[2020-06-25] MEDS: Polyethylene Glycol 3350 17 GM PACKET PO SCH (08:42)
[2020-06-25] MEDS: cefTRIAXone 1 gm/50 mL NS BAG 1 GM/50 ML BAG IVPB SCH (21:33)
[2020-06-25] MEDS: Enoxaparin 40 MG/0.4 ML SYR SUBCUT SCH (21:33)
[2020-06-26 08:11] LABS: ABS Basophils 0.1 10^3/ul (0-0.2); ABS Eosinophils 0.3 10^3/ul (0-0.6); ABS Lymphocytes 1.2 10^3/ul (1.0-4.8); ABS Monocytes 0.9 10^3/ul (0-0.8); ABS Neutrophils 4.3 10^3/ul (1.5-7.7); Eosinophil % 5.1 %; Hematocrit 35 % (42-52); Hemoglobin 11.8 g/dL (14.0-18.0); Lymphocyte % 17.2 %; Mean Corpuscular HGB Conc 34 g/dL (31-36); Mean Corpuscular Hemoglobin 30 pg (27-31); Mean Corpuscular Volume 89 fL (80-94); Mean Platelet Volume 7.6 fL (7.4-10.4); Platelet Count 291 10^3/uL (150-450); Red Cell Distribution Width 15 % (10-15); White Blood Count 6.7 10^3/uL (3.5-10.8)
[2020-06-26 08:24] LABS: Calcium 9.3 mg/dL (8.6-10.3); EGFR African American 47.3 (>60); EGFR Non-African American 39.1 (>60); Magnesium 2.4 mg/dL (1.9-2.7); Potassium 3.9 mmol/L (3.5-5.0)
[2020-06-26] MEDS: Polyethylene Glycol 3350 17 GM PACKET PO SCH (09:51)
[2020-06-26] MEDS: NS 0.9% 1000 ml BAG 1,000 ML IV SCH ×2 (10:03→21:02)
[2020-06-26] MEDS: cefTRIAXone 1 gm/50 mL NS BAG 1 GM/50 ML BAG IVPB SCH (21:02)
[2020-06-26] MEDS: Enoxaparin 40 MG/0.4 ML SYR SUBCUT SCH (21:08)
[2020-06-27] MEDS: NS 0.9% 1000 ml BAG 1,000 ML IV SCH (05:05)
[2020-06-27] MEDS: Polyethylene Glycol 3350 17 GM PACKET PO SCH (08:49)
[2020-06-27] MEDS: Enoxaparin 40 MG/0.4 ML SYR SUBCUT SCH (20:27)
[2020-06-27] MEDS: cefTRIAXone 1 gm/50 mL NS BAG 1 GM/50 ML BAG IVPB SCH (20:28)
[2020-06-28] MEDS: Polyethylene Glycol 3350 17 GM PACKET PO SCH (08:25)
[2020-06-28] MEDS ORDERED: Iodixanol (CONTRAST) 320 MG/ML 100 ML SDV IV ONE (19:39)
[2020-06-28] MEDS: Enoxaparin 40 MG/0.4 ML SYR SUBCUT SCH (21:04)
[2020-06-28] MEDS: cefTRIAXone 1 gm/50 mL NS BAG 1 GM/50 ML BAG IVPB SCH (21:04)
[2020-06-28] MEDS ORDERED: Lactated Ringers 1000 ml BAG 1,000 ML IV ONE (21:22)
[2020-06-29 05:59] LABS: BUN/Creatinine Ratio 22.4 (8-20); Calcium 9.1 mg/dL (8.6-10.3); EGFR African American 56.7 (>60); EGFR Non-African American 46.8 (>60); Potassium 4.2 mmol/L (3.5-5.0)
[2020-06-29] MEDS: Polyethylene Glycol 3350 17 GM PACKET PO SCH (08:02)
[2020-06-29] MEDS: cefTRIAXone 1 gm/50 mL NS BAG 1 GM/50 ML BAG IVPB SCH (20:33)
[2020-06-29] MEDS: Enoxaparin 40 MG/0.4 ML SYR SUBCUT SCH (20:34)
[2020-06-30] MEDS: Polyethylene Glycol 3350 17 GM PACKET PO SCH (09:26)
[2020-06-30] MEDS: Enoxaparin 40 MG/0.4 ML SYR SUBCUT SCH (20:08)
[2020-06-30] MEDS: Sulfamethox/Trimethoprim DS TAB 800/160 mg PO SCH (20:08)
[2020-07-01] MEDS: Sulfamethox/Trimethoprim DS TAB 800/160 mg PO SCH (07:31)
[2020-07-01] MEDS: Polyethylene Glycol 3350 17 GM PACKET PO SCH (07:32)
[2020-07-01] MEDS: CMCS:Calcitonin NASAL(NF) 200 UNITS/SPRAY NASAL.SPR ALT NARE SCH (13:02)
[2020-07-01] MEDS: Enoxaparin 40 MG/0.4 ML SYR SUBCUT SCH (21:24)
[2020-07-02] MEDS: Polyethylene Glycol 3350 17 GM PACKET PO SCH (09:42)
[2020-07-02] MEDS: CMCS:Calcitonin NASAL(NF) 200 UNITS/SPRAY NASAL.SPR ALT NARE SCH (09:44)
[2020-07-02] MEDS: Enoxaparin 40 MG/0.4 ML SYR SUBCUT SCH (20:30)
[2020-07-03] MEDS: Polyethylene Glycol 3350 17 GM PACKET PO SCH (09:31)
[2020-07-03] MEDS: CMCS:Calcitonin NASAL(NF) 200 UNITS/SPRAY NASAL.SPR ALT NARE SCH (10:55)
[2020-07-03] MEDS: Enoxaparin 40 MG/0.4 ML SYR SUBCUT SCH (21:27)
[2020-07-04] MEDS: CMCS:Calcitonin NASAL(NF) 200 UNITS/SPRAY NASAL.SPR ALT NARE SCH (08:04)
[2020-07-04] MEDS: Polyethylene Glycol 3350 17 GM PACKET PO SCH (08:04)
[2020-07-04 11:28] VITALS: BP 103/62
== END 2020-07-04 16:40 | DRG 690 ==
LOC: MED 14:13 → ED 14:13 → MED 22:03 → MEDTELE 07-01 23:23
PROVIDERS: ADMIT Hospitalist; ATTEND Internal Medicine

== ENCOUNTER 2022-08-22 19:51 | Inpatient (IN) ==
[2022-08-22] MEDS ORDERED: Nystatin SUSPENSION 100,000 UNITS/ML UDC PO ONE (20:18)
[2022-08-22] MEDS ORDERED: Anidulafungin 200 MG in NS 0.9% 250 ml 200 ML IVPB ONE (22:03)
[2022-08-22] MEDS ORDERED: Lactated Ringers 1000 ml BAG 1,000 ML IV ONE (22:16)
[2022-08-22] MEDS ORDERED: D5LR 1000 ml BAG 1,000 ML IV SCH (23:45)
[2022-08-22] MEDS ORDERED: Lorazepam PYXIS KEY PRN (23:57)
[2022-08-22] MEDS ORDERED: LORazepam 2 mg VIAL 1 ml IV PUSH PRN (23:57)
[2022-08-23 03:22] LABS: Hematocrit 35 % (42-52); Hemoglobin 10.8 g/dL (14.0-18.0); Mean Corpuscular HGB Conc 31 g/dL (31-36); Mean Corpuscular Hemoglobin 29 pg (27-31); Mean Corpuscular Volume 93 fL (80-94); Red Cell Distribution Width 15 % (10-15); White Blood Count 13.3 10^3/uL (3.5-10.8)
[2022-08-23 03:25] LABS: ABS Basophils 0.1 10^3/ul (0-0.2); ABS Eosinophils 0.1 10^3/ul (0-0.6); ABS Lymphocytes 0.8 10^3/ul (1.0-4.8); ABS Monocytes 0.9 10^3/ul (0-0.8); ABS Neutrophils 11.5 10^3/ul (1.5-7.7); Eosinophil % 0.5 %; Lymphocyte % 5.9 %; Nucleated Red Blood Cells % 0.1
[2022-08-23 04:09] LABS: Mean Platelet Volume 8.7 fL (7.4-10.4); Platelet Count 365 10^3/uL (150-450)
[2022-08-23 04:12] LABS: ALT 10 U/L (7-52); Albumin 3.3 g/dL (3.2-5.2); Albumin/Globulin Ratio 0.8 (1-3); Alkaline Phosphatase 72 U/L (35-149); Blood Urea Nitrogen 129 mg/dL (6-24); CO2 Carbon Dioxide 26 mmol/L (22-32); Calcium 9.4 mg/dL (8.6-10.3); Globulin 4.1 g/dL (2-4); Glucose 105 mg/dL (70-100); Total Protein 7.4 g/dL (6.4-8.9); eGFR CKD-EPI 23.1 (>60)
[2022-08-23 04:15] LABS: Anion Gap 17 mmol/L (2-11); Chloride 113 mmol/L (101-111)
[2022-08-23] MEDS ORDERED: D5LR 1000 ml BAG 1,000 ML IV SCH (04:17)
[2022-08-23 04:18] LABS: Sodium 156 mmol/L (135-145)
[2022-08-23 04:34] LABS: Large Platelets Present
[2022-08-23 05:08] LABS: Urine Appearance Cloudy; Urine Bilirubin Negative (Negative); Urine Blood 2+ (Negative); Urine Color Yellow; Urine Glucose Negative (Negative); Urine Ketones Negative (Negative); Urine Nitrite Negative (Negative); Urine Protein 1+(30 mg/dL) (Negative); Urine Specific Gravity 1.011 (1.002-1.030); Urine Urobilinogen Negative (Negative)
[2022-08-23 05:11] LABS: Potassium Redraw 3.9 mmol/L (3.5-5.0)
[2022-08-23 05:11] LABS: Urine Bacteria 1+ (Absent); Urine Red Blood Cell 2+(6-10/hpf) (Absent); Urine Squamous Epithelial Cell Present (Absent); Urine White Blood Cell 3+(>20/hpf) (Absent); Urine Yeast Present (Absent)
[2022-08-23] MEDS: Pantoprazole VIAL 40 MG VIAL IV SCH (08:35)
[2022-08-23] MEDS: Heparin 5000 UNITS/ML 1 mL VIAL SUBCUT SCH ×2 (08:35→20:13)
[2022-08-23] MEDS: D5LR 1000 ml BAG 1,000 ML IV SCH ×2 (10:52→17:40)
[2022-08-23 16:31] LABS: Calcium 8.9 mg/dL (8.6-10.3); Potassium 3.7 mmol/L (3.5-5.0)
[2022-08-23 16:37] LABS: eGFR CKD-EPI 26.9 (>60)
[2022-08-24] MEDS: D5LR 1000 ml BAG 1,000 ML IV SCH (01:45)
[2022-08-24 06:47] LABS: ABS Lymphocytes 0.7 10^3/ul (1.0-4.8); ABS Monocytes 1.2 10^3/ul (0-0.8); ABS Neutrophils 10.4 10^3/ul (1.5-7.7); Eosinophil % 0.1 %; Hematocrit 31 % (42-52); Hemoglobin 9.8 g/dL (14.0-18.0); Lymphocyte % 5.4 %; Mean Corpuscular HGB Conc 32 g/dL (31-36); Mean Corpuscular Hemoglobin 29 pg (27-31); Mean Corpuscular Volume 92 fL (80-94); Mean Platelet Volume 8.9 fL (7.4-10.4); Platelet Count 278 10^3/uL (150-450); Red Blood Count 3.37 10^6 /uL (4.18-5.48); Red Cell Distribution Width 15 % (10-15); White Blood Count 12.3 10^3/uL (3.5-10.8)
[2022-08-24 07:04] LABS: C Reactive Protein 111.78 mg/L (<8.01); Calcium 8.5 mg/dL (8.6-10.3); Potassium 3.8 mmol/L (3.5-5.0); eGFR CKD-EPI 27.6 (>60)
[2022-08-24] MEDS: D5W 1/2 NS 1000 ml BAG 1,000 ML IV SCH ×2 (08:27→20:55)
[2022-08-24] MEDS: Pantoprazole VIAL 40 MG VIAL IV SCH (10:10)
[2022-08-24] MEDS: Heparin 5000 UNITS/ML 1 mL VIAL SUBCUT SCH ×2 (10:10→20:36)
[2022-08-24 15:36] LABS: Calcium 8.5 mg/dL (8.6-10.3); Potassium 3.7 mmol/L (3.5-5.0); eGFR CKD-EPI 31.1 (>60)
[2022-08-24] MEDS ORDERED: Piperacillin/Tazobac ADVAN 3.375 GM in NS 0.9% 100 ml BAG 100 ML IV ONE (15:44)
[2022-08-24] MEDS ORDERED: Zosyn per Pharmacy NOTE FOLLOW UP SCH (16:00)
[2022-08-24] MEDS: ZOSYN 3.375 GM Q8H per EXTENDED INFUSION IV SCH (20:37)
[2022-08-25] MEDS: ZOSYN 3.375 GM Q8H per EXTENDED INFUSION IV SCH ×3 (03:39→20:47)
[2022-08-25 06:13] LABS: ABS Lymphocytes 0.5 10^3/ul (1.0-4.8); ABS Monocytes 1.1 10^3/ul (0-0.8); ABS Neutrophils 14.6 10^3/ul (1.5-7.7); Eosinophil % 0.1 %; Hematocrit 32 % (42-52); Hemoglobin 9.9 g/dL (14.0-18.0); Mean Corpuscular HGB Conc 31 g/dL (31-36); Mean Corpuscular Hemoglobin 29 pg (27-31); Mean Corpuscular Volume 93 fL (80-94); Mean Platelet Volume 8.4 fL (7.4-10.4); Platelet Count 254 10^3/uL (150-450); Red Blood Count 3.43 10^6 /uL (4.18-5.48); Red Cell Distribution Width 15 % (10-15); White Blood Count 16.2 10^3/uL (3.5-10.8)
[2022-08-25 07:10] LABS: Albumin 2.6 g/dL (3.2-5.2); Albumin/Globulin Ratio 0.7 (1-3); C Reactive Protein 155.82 mg/L (<8.01); Calcium 8.3 mg/dL (8.6-10.3); Globulin 3.5 g/dL (2-4); Potassium 3.4 mmol/L (3.5-5.0); Total Bilirubin 0.4 mg/dL (0.2-1.0); Total Protein 6.1 g/dL (6.4-8.9); eGFR CKD-EPI 31.5 (>60)
[2022-08-25] MEDS: D5W 1000 ml BAG 1,000 ML IV SCH ×2 (08:45→19:08)
[2022-08-25] MEDS: Heparin 5000 UNITS/ML 1 mL VIAL SUBCUT SCH ×2 (10:04→20:49)
[2022-08-25] MEDS: KCL 20 MEQ/100 ML IVPREMIX 20 MEQ/100 ML BAG IV SCH ×3 (10:12→14:22)
[2022-08-25] MEDS: Pantoprazole VIAL 40 MG VIAL IV SCH (10:15)
[2022-08-25 12:29] LABS: Magnesium 2.4 mg/dL (1.9-2.7)
[2022-08-25 15:11] LABS: Potassium 3.7 mmol/L (3.5-5.0); eGFR CKD-EPI 32.4 (>60)
[2022-08-25 20:02] LABS: Urine Appearance Turbid; Urine Bilirubin Negative (Negative); Urine Blood 2+ (Negative); Urine Color Yellow; Urine Glucose Negative (Negative); Urine Ketones Negative (Negative); Urine Nitrite Negative (Negative); Urine Protein 1+(30 mg/dL) (Negative); Urine Specific Gravity 1.012 (1.002-1.030); Urine Urobilinogen Negative (Negative)
[2022-08-25 20:18] LABS: Urine Bacteria Absent (Absent); Urine Red Blood Cell 3+(>10/hpf) (Absent); Urine Squamous Epithelial Cell Present (Absent); Urine White Blood Cell 3+(>20/hpf) (Absent)
[2022-08-25 20:25] LABS: Calcium 8.1 mg/dL (8.6-10.3); Potassium 3.8 mmol/L (3.5-5.0); eGFR CKD-EPI 31.8 (>60)
[2022-08-26 02:57] LABS: Potassium 3.3 mmol/L (3.5-5.0); eGFR CKD-EPI 33.4 (>60)
[2022-08-26] MEDS: ZOSYN 3.375 GM Q8H per EXTENDED INFUSION IV SCH ×3 (04:35→20:54)
[2022-08-26 08:52] LABS: ABS Lymphocytes 0.7 10^3/ul (1.0-4.8); ABS Neutrophils 13.2 10^3/ul (1.5-7.7); Eosinophil % 0.3 %; Hematocrit 29 % (42-52); Hemoglobin 9.2 g/dL (14.0-18.0); Mean Corpuscular HGB Conc 32 g/dL (31-36); Mean Corpuscular Hemoglobin 30 pg (27-31); Mean Corpuscular Volume 93 fL (80-94); Mean Platelet Volume 8.3 fL (7.4-10.4); Platelet Count 235 10^3/uL (150-450); Red Blood Count 3.12 10^6 /uL (4.18-5.48); Red Cell Distribution Width 15 % (10-15)
[2022-08-26 09:17] LABS: C Reactive Protein 201.19 mg/L (<8.01); Potassium 3.4 mmol/L (3.5-5.0); eGFR CKD-EPI 31.5 (>60)
[2022-08-26] MEDS ORDERED: D5W 1000 ml BAG 1,000 ML IV SCH ×2 (10:00→10:39)
[2022-08-26 10:02] LABS: Magnesium 2.1 mg/dL (1.9-2.7)
[2022-08-26] MEDS: KCL 20 MEQ/100 ML IVPREMIX 20 MEQ/100 ML BAG IV SCH ×5 (10:05→23:26)
[2022-08-26] MEDS: Heparin 5000 UNITS/ML 1 mL VIAL SUBCUT SCH ×2 (10:15→22:54)
[2022-08-26] MEDS: Pantoprazole VIAL 40 MG VIAL IV SCH (10:15)
[2022-08-26 16:58] LABS: Calcium 7.8 mg/dL (8.6-10.3); Potassium 3.4 mmol/L (3.5-5.0)
[2022-08-26] MEDS ORDERED: Acetaminophen IV 1 GM/100ML 1,000 MG/100 ML BAG IV PRN (21:35)
[2022-08-26 23:53] LABS: Urine Appearance Turbid; Urine Bilirubin Negative (Negative); Urine Blood 3+ (Negative); Urine Color Yellow; Urine Glucose Negative (Negative); Urine Ketones Negative (Negative); Urine Nitrite Negative (Negative); Urine Protein 1+(30 mg/dL) (Negative); Urine Specific Gravity 1.012 (1.002-1.030); Urine Urobilinogen Negative (Negative)
[2022-08-27 00:13] LABS: Urine Bacteria Absent (Absent); Urine Red Blood Cell 3+(>10/hpf) (Absent); Urine Squamous Epithelial Cell Present (Absent); Urine White Blood Cell 3+(>20/hpf) (Absent)
[2022-08-27 01:28] VITALS: BP 117/47
== END 2022-08-27 01:06 | disposition expired | DRG 157 ==
LOC: ED 19:51 → SUATTDRO 08-23 14:34 → SSU 08-23 14:34 → MEDTELE 08-23 19:35 → MED 08-27 01:09
PROVIDERS: ADMIT Hospitalist; ATTEND Hospitalist